=== PATIENT | male | born 1955 | race Caucasian/White ===

== ENCOUNTER 2024-01-16 09:07 | Inpatient (IN) | payer BC, OTHER ==
--- NOTE | 2024-01-16 09:47 | RAD REPORT ---
EXAM DESCRIPTION: CT - Head Brain Wo Cont - 01/16/2024 9:37 am CLINICAL HISTORY: SYNCOPE COMPARISON: No comparisons TECHNIQUE: All CT scans are performed using dose optimization technique as appropriate and may inclu de automated exposure control or mA/KV adjustment according to patient size. FINDINGS: No intracranial hemorrhage, hydrocephalus or extra-axial fluid collection.No areas of brai n edema or evidence of midline shift. Mucus retention cyst in the left maxillary sinus. The calvarium is intact. IMPRESSION: No acute intracranial abnormality.
[2024-01-16 10:05] LABS: Absolute Basophils 0.1 K/uL (0-0.5); Absolute Eosinophils 0.4 K/uL (0-0.5); Absolute Lymphocytes (CBC) 1.8 K/uL (0.7-4.9); Absolute Monocytes 0.6 K/uL (0.1-1.3); Absolute Neutrophil 7.1 K/uL (1.8-8.0); Basophils % 1.3 % (0-1.3); Eosinophils % 3.9 % (0-4.4); Hematocrit 49.2 % (39.6-49.0); Hemoglobin 16.4 g/dL (13.6-17.9); Lymphocytes % 18.3 % (15.3-44.8); MCH 27.7 pg (27.0-35.0); MCHC 33.4 g/dL (32.0-36.0); MCV 82.7 fL (80-100); Monocytes % 5.9 % (3.3-12.3); Neutrophils % 70.6 % (41.7-73.7); Platelets 858 thou/uL (152-406); RBC Red Blood Cell Count 5.94 M/uL (4.33-5.43); Red Cell Distribution Width 16.2 % (12.1-15.2)
[2024-01-16 10:06] LABS: PT Prothrombin Time 12.6 SECONDS (9.5-12.5); Protime INR 1.15
[2024-01-16 10:30] LABS: Albumin 3.3 g/dL (3.4-5.0); Albumin/Globulin Ratio 0.8 (1.1-1.8); Anion Gap 8.5 mEq/L (5.0-15.0); Bilirubin Direct 0.2 mg/dL (0-0.2); Bilirubin Indirect, Calculated 0.4 mg/dL (0.2-0.8); Bilirubin Total 0.6 mg/dL (0.2-1.0); Globulin 3.9 g/dL (2.3-3.5); Magnesium 2.1 mg/dL (1.6-2.4); Potassium 4.5 mEq/L (3.5-5.1); Protein, Total 7.2 g/dL (6.4-8.2)
[2024-01-16 10:32] LABS: Troponin High Sensitivity 183.2 pg/mL (<58.9)
--- NOTE | 2024-01-16 10:35 | RAD REPORT ---
EXAM DESCRIPTION: RAD - Chest Single View - 01/16/2024 10:26 am CLINICAL HISTORY: syncope COMPARISON: No comparisons FINDINGS: Lines: None. Lungs: No evidence of edema or pneumonia. Pleural: No significant pleural effusions or pneumothorax. Cardiac: The heart size is within normal limits. Mediastinum: Within normal limits. Bones: No acute fractures. Other: None IMPRESSION: No acute cardiopulmonary disease.
--- NOTE | 2024-01-16 10:40 | EDPHYS ---
Physician Documentation [facility] Name: Derek Avery Age: 68 yrs Sex: Male : 1955 Arrival Date: 01/16/2024 Time: 09:07 Bed 7 Private MD: ED Physician Angelique Hammond HPI: 01/15 09:27 This 68 yrs old Male presents to ER via Unassigned with complaints of Dizziness, Passed sp3 out twice. 09:27 68-year-old male with a history of hypertension, hyperlipidemia, smoking history sp3 presents to the ED with chief complaint syncope. Initial syncopal event was approximately 1 week ago where patient states his "legs got wobbly and he passed out and woke up on the ground". He had another episode yesterday where his found him laying on the ground with the car engine on outside of the home. EMS was activated but patient refused to come in to the ED due to him "feeling better". Today his made him come in so he presents with the above history. No syncopal event today. He denies any prodromal episode prior to the event other than his legs getting weak. He denies any chest pain, shortness of breath, headache, fever, URI symptoms, trauma, sick contacts, travel history, abdominal pain, vomiting, diarrhea, or any other signs or symptoms on ROS at this time. 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 Historical: - Allergies: 09:41 No Known Allergies; ss - Home Meds: 09:41 losartan 50 mg oral tablet 1 tab daily [Active]; atorvastatin 40 mg oral tablet 1 tab ss daily [Active]; clopidogrel 75 mg oral tablet 1 tab daily [Active]; aspirin 81 mg Oral capsule 1 cap daily [Active]; - PMHx: 09:41 high cholesterol; hypertension; ss - PSHx: 09:41 "stents in legs"; ss - Immunization history:: Client reports receiving the 2nd dose of the Covid vaccine. - Infectious Disease History:: Denies. - Social history:: Smoking status: Patient reports the use of cigarette tobacco products, smokes one pack cigarettes per day. Patient uses alcohol, admits to "couple of beers" a day. ROS: 09:30 Eyes: Negative for injury, pain, redness, and discharge, ENT: Negative for injury, sp3 pain, and discharge, Neck: Negative for injury, pain, and swelling, Cardiovascular: Negative for chest pain, palpitations, and edema, Respiratory: Negative for shortness of breath, cough, wheezing, and pleuritic chest pain, Abdomen/GI: Negative for abdominal pain, nausea, vomiting, diarrhea, and constipation, Back: Negative for injury and pain, MS/Extremity: Negative for injury and deformity, Skin: Negative for injury, rash, and discoloration, Psych: Negative for depression, anxiety, suicide ideation, homicidal ideation, and hallucinations, Allergy/Immunology: Negative for hives, rash, and allergies, Endocrine: Negative for neck swelling, polydipsia, polyuria, polyphagia, and marked weight changes, Hematologic/Lymphatic: Negative for swollen nodes, abnormal bleeding, and unusual bruising, 09:30 All other systems are negative, Exam: 09:30 Constitutional: This is a well developed, well nourished patient who is awake, alert, sp3 and in no acute distress. Head/Face: Normocephalic, atraumatic. Eyes: Pupils equal round and reactive to light, extra-ocular motions intact. Lids and lashes normal. Conjunctiva and sclera are non-icteric and not injected. Cornea within normal limits. Periorbital areas with no swelling, redness, or edema. ENT: Nares patent. No nasal discharge, no septal abnormalities noted. External auditory canals are clear. Oropharynx with no redness, swelling, or masses, exudates, or evidence of obstruction, uvula midline. Mucous membranes moist. Neck: Trachea midline, no thyromegaly or masses palpated, and no cervical lymphadenopathy. Supple, full range of motion without nuchal rigidity, or vertebral point tenderness. No Meningismus. Chest/axilla: Normal chest wall appearance and motion. Nontender with no deformity. No lesions are appreciated. Cardiovascular: Regular rate and rhythm with a normal S1 and S2. No gallops, murmurs, or rubs. Normal PMI, no JVD. No pulse deficits. Respiratory: Lungs have equal breath sounds bilaterally, clear to auscultation and percussion. No rales, rhonchi or wheezes noted. No increased work of breathing, no retractions or nasal flaring. Abdomen/GI: Soft, non-tender, with normal bowel sounds. No distension or tympany. No guarding or rebound. No evidence of tenderness throughout. Back: No spinal tenderness. No costovertebral tenderness. Full range of motion. Skin: Warm, dry with normal turgor. Normal color with no rashes, no lesions, and no evidence of cellulitis. MS/ Extremity: Pulses equal, no cyanosis. Neurovascular intact. Full, normal range of motion. Neuro: Awake and alert, GCS 15, oriented to person, place, time, and situation. Cranial nerves II-XII grossly intact. Motor strength 5/5 in all extremities. Sensory grossly intact. Cerebellar exam normal. Normal gait. Psych: Awake, alert, with orientation to person, place and time. Behavior, mood, and affect are within normal limits. 10:14 ECG was reviewed by the Attending Physician. EKG demonstrates normal sinus rhythm at 71 sp3 bpm with normal intervals, normal QRS, normal axis, normal ST/T segments without evidence of acute ischemia. Vital Signs: 09:13 BP 158 / 80; Pulse 70; Resp 16; Temp 98.5(TE); Pulse Ox 99% on R/A; Weight 74.84 kg; ss Height 5 ft. 8 in. ; Pain 0/10; 10:22 BP 139 / 79 Sitting; Pulse 67; Resp 14; Pulse Ox 99% ; sm8 10:22 BP 149 / 92 Supine; Pulse 64; Resp 12; Pulse Ox 98% ; sm8 10:22 BP 146 / 72 Standing; Pulse 75; Resp 16; Pulse Ox 96% ; sm8 11:30 BP 112 / 73; Pulse 65; Resp 20; Pulse Ox 97% on R/A; db 09:13 Body Mass Index 25.09 (74.84 kg, 172.72 cm) ss 09:13 Pain Scale: Adult ss MDM: 09:14 Patient medically screened. sp3 09:30 Data reviewed: vital signs, nurses notes, lab test result(s), EKG, radiologic studies. sp3 ED course: 68-year-old male with PMH above now here with syncope for 2 episodes over the last 1 week. No current symptoms. Patient denies any weakness or other stroke related symptoms. Differential diagnosis includes vasovagal syncope, dehydration, TIA/stroke spectrum, acute coronary syndrome, intracranial mass, among others. Clinically I am not highly suspicious for sepsis, shock, or any other critical process. Workup will include EKG, chest x-ray, CT scan of the head, laboratory values, UA, and general observation. Disposition pending workup and patient course.. 10:38 ED course: CT scan of the head and chest x-ray are normal. Laboratory values within [facility] normal limits other than troponin of 183 in the setting of normal creatinine. Sodium also 134. Given his symptoms, we will admit patient with cardiology consultation and serial markers and further evaluation as they deem necessary.. 11:19 ED course: Patient has been seen at the [facility] in the past but request to be sp3 admitted here for this diagnosis given the severity.. 06 09:24 Order name: Basic Metabolic Panel; Complete Time: 10:35 3 01/15 09:24 Order name: CBC with Diff; Complete Time: 10:35 3 01/15 09:24 Order name: LFT's; Complete Time: 10:35 [facility] 01/15 09:24 Order name: Magnesium; Complete Time: 10:35 3 01/15 09:24 Order name: NT PRO-BNP; Complete Time: 10:35 3 01/15 09:24 Order name: PT-INR; Complete Time: 10:35 3 01/15 09:24 Order name: Troponin HS; Complete Time: 10:35 3 01/15 09:30 Order name: CK; Complete Time: 10:35 sp3 01/15 09:30 Order name: [facility] 01/15 11:49 Order name: Basic Metabolic Panel [facility] 01/15 11:49 Order name: CBC with Automated Diff [facility] 01/15 11:49 Order name: Lipid Profile [facility] 01/15 11:49 Order name: Lipid Profile [facility] 01/15 11:49 Order name: Troponin High Sensitivity [facility] 01/15 11:49 Order name: Troponin High Sensitivity [facility] 01/15 11:49 Order name: Troponin High Sensitivity [facility] 01/15 11:49 Order name: Troponin High Sensitivity [facility] 01/15 09:24 Order name: XRAY Chest (1 view); Complete Time: 10:38 3 01/15 09:24 Order name: CT Head Brain wo Cont; Complete Time: 09:52 3 01/15 11:49 Order name: Echo with Doppler [facility] 01/15 11:52 Order name: Carotid Artery Bilateral [facility] 01/15 11:49 Order name: CONS Physician Consult [facility] 01/15 09:24 Order name: Cardiac monitoring; Complete Time: 10:00 sp3 01/15 09:24 Order name: EKG - Nurse/Tech; Complete Time: 10:00 sp3 01/15 09:24 Order name: IV Saline Lock; Complete Time: 10:00 sp3 01/15 09:24 Order name: Labs collected and sent; Complete Time: 10:00 sp3 01/15 09:24 Order name: O2 Per Protocol; Complete Time: 10:00 sp3 01/15 09:24 Order name: O2 Sat Monitoring; Complete Time: 10:00 sp3 01/15 09:32 Order name: Orthostatics; Complete Time: 10:24 sp3 Administered Medications: No medications were administered Disposition Summary: 01/16/24 10:39 Hospitalization Ordered Notes: Hospitalization Status: Inpatient Admission sp3 Provider: Sindy Leary sp3 Location: Telemetry/MedSurg (Inpatient) sp3 Condition: Stable sp3 Problem: new sp3 Symptoms: are unchanged sp3 Bed/Room Type: Standard sp3 Room Assignment: 212(01/16/24 11:59) Diagnosis - NSTEMI, SYNCOPE sp3 Forms: - Medication Reconciliation Form sp3 - SBAR form sp3 - Leadership Thank You Letter sp3 Signatures: Dispatcher [employer] Stacy Escalante RN RN ss Angelique Hammond MD MD sp3 Corrections: (The following items were deleted from the chart) 09:25 09:24 BASIC METABOLIC PANEL+C.LAB.BRZ ordered. EDCO EDMS : 09:24 CBC+H.LAB.BRZ ordered. EDMS EDMS : 09:24 HEPATIC FUNCTION+C.LAB.BRZ ordered. EDMS EDMS 09: 09:24 MAGNESIUM+C.LAB.BRZ ordered. EDMS EDMS : 09:24 PROBNP+C.LAB.BRZ ordered. EDCO EDMS : 09:25 PROTIME (+INR)+COAG.LAB.BRZ ordered. EDCO EDMS : 09:25 Troponin High Sensitivity+C.LAB.BRZ ordered. EDMS EDMS : 09:25 Chest Single View+RAD.RAD.BRZ ordered. EDMS EDMS 09:25 09:25 Head Brain Wo Cont+CT.RAD.BRZ ordered. EDMS EDMS 11:59 10:39 sp3 ss
--- NOTE | 2024-01-16 10:40 | ER ---
Nurse's Notes [facility] [place] Name: Derek Avery Age: 68 yrs Sex: Male : 1955 Arrival Date: 01/16/2024 Time: 09:07 Bed 7 Private MD: Diagnosis: NSTEMI, SYNCOPE Presentation: 01/15 09:13 Chief complaint: Patient states: syncopal episode 1 week ago and another episode ss yesterday. reports when she found him yesterday, he was blue and responsive. Pt reports he has not been feeling ill lately and is unsure as to why this is happening. Coronavirus screen: Client denies travel out of the [place] in the last 14 days. Ebola Screen: Patient denies exposure to infectious person. Patient denies travel to an Ebola-affected area in the 21 days before illness onset. Initial Sepsis Screen: Does the patient meet any 2 criteria? No. Patient's initial sepsis screen is negative. Does the patient have a suspected source of infection? No. Patient's initial sepsis screen is negative. Risk Assessment: Do you want to hurt yourself or someone else? Patient reports no desire to harm self or others. Onset of symptoms was January 09, 2024. 09:13 Method Of Arrival: Ambulatory ss 09:13 Acuity: AUGUST 3 ss Triage Assessment: 09:15 General: Appears in no apparent distress. comfortable, Behavior is calm, cooperative. ss Pain: Denies pain. Neuro: Level of Consciousness is awake, alert, obeys commands, Oriented to person, place, time, situation. Respiratory: Airway is patent Respiratory effort is even, unlabored, Respiratory pattern is regular, symmetrical. Derm: Skin is intact, is healthy with good turgor, Skin is dry, Skin is red. Historical: - Allergies: 09:41 No Known Allergies; ss - Home Meds: 09:41 losartan 50 mg oral tablet 1 tab daily [Active]; atorvastatin 40 mg oral tablet 1 tab ss daily [Active]; clopidogrel 75 mg oral tablet 1 tab daily [Active]; aspirin 81 mg Oral capsule 1 cap daily [Active]; - PMHx: 09:41 high cholesterol; hypertension; ss - PSHx: 09:41 "stents in legs"; ss - Immunization history:: Client reports receiving the 2nd dose of the Covid vaccine. - Infectious Disease History:: Denies. - Social history:: Smoking status: Patient reports the use of cigarette tobacco products, smokes one pack cigarettes per day. Patient uses alcohol, admits to "couple of beers" a day. Screenin:22 [facility] ED Fall Risk Assessment (Adult) History of falling in the last 3 months, db including since admission No falls in past 3 months (0 pts) Confusion or Disorientation No (0 pts) Intoxicated or Sedated No (0 pts) Impaired Gait No (0 pts) Mobility Assist Device Used No (0 pt) Altered Elimination No (0 pt) Score/Fall Risk Level 0 - 2 = Low Risk Oriented to surroundings, Maintained a safe environment. Abuse screen: Denies threats or abuse. Denies injuries from another. Nutritional screening: No deficits noted. Tuberculosis screening: No symptoms or risk factors identified. Assessment: 09:59 Reassessment: Patient appears in no apparent distress at this time. Patient and/or db family updated on plan of care and expected duration. Pain level reassessed. Patient is alert, oriented x 3, equal unlabored respirations, skin warm/dry/pink. syncopal episode yesterday. General: Appears in no apparent distress. comfortable, Behavior is calm, cooperative. Neuro: Level of Consciousness is awake, alert, obeys commands, Oriented to person, place, time, situation, Speech is normal, Facial symmetry appears normal. Respiratory: Airway is patent Respiratory effort is even, unlabored, Respiratory pattern is regular, symmetrical. 12:10 Reassessment: Patient appears in no apparent distress at this time. No changes from db previously documented assessment. Patient and/or family updated on plan of care and expected duration. Pain level reassessed. Patient is alert, oriented x 3, equal unlabored respirations, skin warm/dry/pink. PT PROVIDED SANDWICH PER DR. HAMMOND. 12:23 Reassessment: Patient appears in no apparent distress at this time. Patient and/or db family updated on plan of care and expected duration. Pain level reassessed. Patient is alert, oriented x 3, equal unlabored respirations, skin warm/dry/pink. 13:00 Reassessment: Patient appears in no apparent distress at this time. Patient and/or db family updated on plan of care and expected duration. Pain level reassessed. Patient is alert, oriented x 3, equal unlabored respirations, skin warm/dry/pink. Vital Signs: 09:13 BP 158 / 80; Pulse 70; Resp 16; Temp 98.5(TE); Pulse Ox 99% on R/A; Weight 74.84 kg; ss Height 5 ft. 8 in. ; Pain 0/10; 10:22 BP 139 / 79 Sitting; Pulse 67; Resp 14; Pulse Ox 99% ; sm8 10:22 BP 149 / 92 Supine; Pulse 64; Resp 12; Pulse Ox 98% ; sm8 10:22 BP 146 / 72 Standing; Pulse 75; Resp 16; Pulse Ox 96% ; sm8 11:30 BP 112 / 73; Pulse 65; Resp 20; Pulse Ox 97% on R/A; db 09:13 Body Mass Index 25.09 (74.84 kg, 172.72 cm) ss 09:13 Pain Scale: Adult ss ED Course: 09:11 Patient arrived in ED. ts1 09:11 Angelique Hammond MD is Attending Physician. sp3 09:20 Initial lab(s) drawn, by or, sent to lab. Inserted saline lock: 20 gauge in right db forearm, using aseptic technique. Blood collected. 09:39 CT Head Brain wo Cont In Process Unspecified. EDMS 09:41 Triage completed. ss 09:41 Arm band placed on right wrist. ss 09:45 Nette Mendoza, JOHN PAUL is Primary Nurse. db 09:59 EKG done, by ED staff. sm8 10:28 XRAY Chest (1 view) In Process Unspecified. EDMS 10:39 Sindy Leary MD is Hospitalizing Provider. sp3 12:22 Patient has correct armband on for positive identification. Bed in low position. Call db light in reach. Side rails up X 1. Provided Education on: ADMISSION. Pulse ox on. NIBP on. 12:23 No provider procedures requiring assistance completed. Patient admitted, IV remains in db place. Administered Medications: No medications were administered Medication: 12:22 VIS not applicable for this client. db Outcome: 10:39 Decision to Hospitalize by Provider. sp3 12:22 Admitted to ER Hold. Please see [facility] for further documentation. db 12:22 Condition: stable 12:22 Instructed on the need for admit, 13:01 Patient left the ED. db Signatures: Dispatcher [facility] Stacy Escalante, RN RN ss Angelique Hammond MD MD sp3 Nette Mendoza RN RN db Melonie Emerson PAS PAS ts1 Rahda Perez 8
--- NOTE | 2024-01-16 11:29 | P.HP ---
Certification for Inpatient Patient admitted to: Inpatient With expected LOS: >2 Midnights Patient will require the following post-hospital care: None Practitioner: I am a practitioner with admitting privileges, knowledge of patient current condition, hospital course, and medical plan of care. Services: Services provided to patient in accordance with Admission requirements found in Title 42 Section 412.3 of the Code of Federal Regulations <Farzana Robleskristal Hernandez - Last Filed: 01/16/24 12:50> Patient History Date of Service: 01/16/24 Primary Care Provider: VIV Reason for admission: Syncope, NSTEMI History of Present Illness: Mr. Avery is a 68-year-old gentleman with a past medical history of hyperte nsion, hyperlipidemia, peripheral artery disease, tobacco abuse. Last week he admits to a syncopal episode that he kept from his . Yesterday 01/15/2024, he had another syncopal episode with cyanosis and shallow respirations at his home and EMS was called. They evaluated the patient and attempted to transport him to the emergency department; however, the patient refused. As of this morning, he denies any symptoms but his insisted he come to the ED. On evaluation he is alert, oriented, and hemodynamically stable. His EKG shows sinus rhythm at 71 with hyperacute T wave isolated to lead V2. CT head negative, chest x-ray with "no acute cardiopulmonary disease" Labs: WBC 10, H/H 16.4/49.2 with platelets of 858, CMP within normal limits, Troponin 183.2. We will admit him for serial enzymes, carotid Doppler, and cardiology consultation. 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 -: Appendectomy Psychosocial/ Personal History: Lives at home with his - Social History Smoking Status: Current every day smoker Alcohol use: Yes CD- Drugs: No Caffeine use: Yes Place of Residence: Home <Farzana Robleskristal Hernandez - Last Filed: 01/16/24 12:50> Date of Service: 01/16/24 <Sindy Leary - Last Filed: 01/16/24 14:54> Allergies No Known Allergies Allergy (Verified 03/02/18 16:38) Home Medications: Aspirin 81 mg PO DAILY 01/16/24 Atorvastatin Calcium 40 mg PO DAILY 01/16/24 Clopidogrel Bisulfate [Plavix] 75 mg PO DAILY 01/16/24 Losartan Potassium 50 mg PO DAILY 01/16/24 Review of Systems 10-point ROS is otherwise unremarkable General: As per HPI Neurological: As per HPI <Tessie Robles David - Last Filed: 01/16/24 12:50> Physical Examination - Physical Exam General: Alert, In no apparent distress, Oriented x3 HEENT: Other (poor dentition) Neck: Supple Respiratory: Normal air movement Cardiovascular: No edema, Normal pulses, Regular rate/rhythm Capillary refill: <2 Seconds Gastrointestinal: Soft and benign Musculoskeletal: No clubbing, No swelling Integumentary: No rashes, Other (hyperemic) Neurological: Normal speech, Normal tone, Normal affect Lymphatics: No axilla or inguinal lymphadenopathy External genitalia: Deferred Rectal: Deferred - Studies Laboratory Data (last 24 hrs) 01/16/24 01/16/24 01/16/24 09:55 09:55 09:55 WBC 10.00 Hgb 16.4 Hct 49.2 H Plt Count 858 H PT 12.6 H INR 1.15 Sodium 134 L Potassium 4.5 BUN 12 Creatinine 0.86 Glucose 96 Magnesium 2.1 Total Bilirubin 0.6 AST 34 ALT 42 Alkaline Phosphatase 59 <Tessie Robles - Last Filed: 01/16/24 12:50> - Studies Laboratory Data (last 24 hrs) 01/16/24 01/16/24 01/16/24 09:55 09:55 09:55 WBC 10.00 Hgb 16.4 Hct 49.2 H Plt Count 858 H PT 12.6 H INR 1.15 Sodium 134 L Potassium 4.5 BUN 12 Creatinine 0.86 Glucose 96 Magnesium 2.1 Total Bilirubin 0.6 AST 34 ALT 42 Alkaline Phosphatase 59 <Sindy Leary - Last Filed: 01/16/24 14:54> Assessment and Plan - Plan Syncope CT head negative in ED Carotid doppler of bilat carotid arteries Neurochecks q shift NSTEMI tele trend trops heparin drip consult cardiology HTN Losartan 50mg po HLD atorvastatin 40mg po q hs eval lipids PAD hx of stenting to lower extremities Plavix 75mg po daily Tobacco abuse Recommend cessation VRE/GI prophylaxis Heparin/protonix Full Code - Advance Directives Does patient have a Living Will: Yes Does patient have a Durable POA for Healthcare: Yes <MargaretTessie David - Last Filed: 01/16/24 12:50> - Plan Pt seen and examined. I agree with the note by the [facility]. Pt is a 68 yo male with past medical history of Htn, tobacco abuse, and HLD who presents with dizziness and syncope. Pt passed out twice over the past 1 week. Pt reports that he felt weak in his legs and passed out about a week ago. Yesterday, his found him ground next to his car. She called EMS but pt refused to come to the ER. His convinced him to come to the ER for evaluation. 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 On admission, lab studies show wbc 10, Hgb 16.4, plt 858, k 4.5, Cr 0.86, troponin 183, BNP 645. At bedside, pt is in NAD. A/P: Syncope: Unknown etiology. Will f/u orthostatic vitals, Echo and carotid ultrasound. Likely due to dehydration. Continue IVF. NSTEMI: Troponin is 183. Will continue heparin drip, aspirin, BB and statin and consult cardiology Htn: Continue metoprolol Mild hyponatremia: Will give IVF and trend Na level. Hx of PAD: Continue plavix and atorvastatin. HLD: statin Tobacco abuse: Pt was advised to quit smoking Thrombocytosis: Will give aspirin and monitor platelet level. DVT ppx: SCD Code: full <Sindy Leary - Last Filed: 01/16/24 14:54>
[2024-01-16] MEDS ORDERED: MORPHINE 4 MG/ML SYR IV PRN (11:39)
[2024-01-16 13:27] VITALS: BMI 25.0
[2024-01-16] MEDS: HEPARIN/D5W 25,000 UNIT/500 ML BAG IV SCH (14:14)
[2024-01-16] MEDS: NA CHLORIDE 0.9% 1,000 ML IV SCH (15:05)
--- NOTE | 2024-01-16 15:17 | P.CNS ---
Date of Consult: 01/16/24 Primary Care Provider: VIV Chief Complaint: Syncope, NSTEMI History of Present Illness: Patient with PMH of PAD, HTN, tobacco abuse presented with Syncope, that happened twice over the last week, he can not recall specific symptoms with it but feel leg weak then pass out, no chest pain, no palpitations, no SOB. 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 moist/pink, EOMI, Sclerae nonicteric Neck: Supple, 2+ carotid pulse no bruit, No LAD, Without JVD or thyroid abnormality Respiratory: Clear to auscultation bilaterally, Normal air movement Cardiovascular: Regular rate/rhythm, Normal S1 S2 Gastrointestinal: Normal bowel sounds, No tenderness Musculoskeletal: No tenderness Integumentary: No rashes Neurological: Normal gait, Normal speech, Normal tone, Normal affect Lymphatics: No axilla or inguinal lymphadenopathy Laboratory Data (last 24 hrs) 01/16/24 01/16/24 01/16/24 09:55 09:55 09:55 WBC 10.00 Hgb 16.4 Hct 49.2 H Plt Count 858 H PT 12.6 H INR 1.15 Sodium 134 L Potassium 4.5 BUN 12 Creatinine 0.86 Glucose 96 Magnesium 2.1 Total Bilirubin 0.6 AST 34 ALT 42 Alkaline Phosphatase 59 - Problems (1) Syncope Current Visit: Yes Status: Acute Plan: unclear etiology so far, continue to monitor on telemetery get echo in am. (2) NSTEMI (non-ST elevated myocardial infarction) Current Visit: Yes Status: Acute Plan: continue to trend troponin x3 sets ASA 81 mg daily Lipitor 40 mg daily Heparin drip. (3) HTN (hypertension) Current Visit: Yes Status: Acute Plan: Continue Losartan and monitor. (4) PAD (peripheral artery disease) Current Visit: No Status: Acute Plan: Continue ASA and Plavix.
[2024-01-16 18:25] LABS: Absolute Basophils 0.1 K/uL (0-0.5); Absolute Eosinophils 0.5 K/uL (0-0.5); Absolute Lymphocytes (CBC) 1.9 K/uL (0.7-4.9); Absolute Monocytes 0.6 K/uL (0.1-1.3); Absolute Neutrophil 7.1 K/uL (1.8-8.0); Basophils % 1.2 % (0-1.3); Eosinophils % 5.2 % (0-4.4); Hematocrit 46.7 % (39.6-49.0); Hemoglobin 15.7 g/dL (13.6-17.9); Lymphocytes % 18.6 % (15.3-44.8); MCH 27.7 pg (27.0-35.0); MCHC 33.7 g/dL (32.0-36.0); MCV 82.3 fL (80-100); MPV 7.8 fL (7.6-11.3); Monocytes % 6.1 % (3.3-12.3); Neutrophils % 68.9 % (41.7-73.7); Nucleated Red Blood Cells % 0.2 % (0-0); Platelets 699 thou/uL (152-406); RBC Red Blood Cell Count 5.68 M/uL (4.33-5.43); Red Cell Distribution Width 16.1 % (12.1-15.2)
[2024-01-16 18:58] LABS: Troponin High Sensitivity 186.8 pg/mL (<58.9)
[2024-01-16 19:05] LABS: Blood Morphology Comment NOT SEEN (NOT SEEN); Differential Total Cells Count 100; Eosinophils 6 % (0-3); Lymphocytes 12 % (15-42); Monocytes 6 % (0-10); Platelet Estimate INCR; Segmented Neutrophils 75 % (40-80); White Blood Cell Scan DIFF (OK)
--- NOTE | 2024-01-16 19:43 | RAD REPORT ---
EXAM DESCRIPTION: - CP - 01/16/2024 7:33 pm CLINICAL HISTORY: syncope COMPARISON: No comparisons TECHNIQUE: Real-time sonographic evaluation of both carotid systems was performed. Doppler interroga tion was performed with waveform tracing bilaterally. FINDINGS: Normal high resistance waveforms are noted in both external carotid arteries. The common c arotid arteries and internal carotid arteries show normal low resistance waveforms. Mild soft plaque at the left carotid bulb. Peak systolic and end diastolic velocity values and the IC A/CCA ratios are in the non-hemodynamically significant range. Antegrade flow seen in both vertebral arteries. IMPRESSION: No evidence of a hemodynamically significant stenosis. Mild soft plaque at the left euceda tid bulb.
[2024-01-16] MEDS ORDERED: ATORVASTATIN 40 MG TAB PO SCH (21:00)
[2024-01-17] MEDS: CLOPIDOGREL 75 MG TABLET ONE (06:01)
[2024-01-17] MEDS: LOSARTAN POTASSIUM 50 MG TABLET ONE (06:01)
[2024-01-17] MEDS: ASPIRIN 81 MG CHEWABLE TABLET ONE (06:02)
[2024-01-17] MEDS: CLOPIDOGREL 75 MG TABLET PO SCH (06:06)
[2024-01-17] MEDS: ASPIRIN EC 81 MG TAB PO SCH (06:07)
[2024-01-17] MEDS: LOSARTAN POTASSIUM 50 MG TABLET PO SCH (06:07)
[2024-01-17] MEDS ORDERED: LIDOCAINE 1% 20 ML MDV ONE (06:59)
[2024-01-17] MEDS ORDERED: HEPA 1000U/500MLS 2,000 UNIT/1,000 ML BAG IV ONE (06:59)
[2024-01-17] MEDS ORDERED: FENTANYL CITR 100 MCG/2 ML ONE (07:47)
[2024-01-17] MEDS ORDERED: MIDAZOLAM HCL 2 MG/2 ML INJ ONE (07:47)
[2024-01-17] MEDS ORDERED: NITROGLYCERIN/D5W 50 MG/250 ML BTL IV ONE (07:53)
[2024-01-17] MEDS ORDERED: HEPARIN 5000 UNIT/ML 1 ML VIAL ONE (07:53)
[2024-01-17] MEDS ORDERED: HEPARIN 10,000 UNIT/10 ML VIAL IV ONE (07:53)
--- NOTE | 2024-01-17 08:32 | P.PN ---
Subjective Date of Service: 01/17/24 Primary Care Provider: [place] Chief Complaint: Syncope, NSTEMI Mr. Avery is a 68-year-old gentleman with a past medical history of hypertension, hyperlipidemia, peripheral artery disease, tobacco abuse. Last week he admits to a syncopal episode that he kept from his . Plan for left heart today, - Physical Exam General: Alert, In no apparent distress, Oriented x3 HEENT: Other (poor dentition) Neck: Supple Respiratory: Normal air movement Cardiovascular: No edema, Normal pulses, Regular rate/rhythm Capillary refill: <2 Seconds Gastrointestinal: Soft and benign Musculoskeletal: No clubbing, No swelling Integumentary: No rashes, Other (hyperemic) Neurological: Normal speech, Normal tone, Normal affect Lymphatics: No axilla or inguinal lymphadenopathy Review of Systems Per HPI Physical Examination - Vital Signs Temperature: 97.7 F Blood Pressure: 145/85 Pulse: 66 Respirations: 16 Pulse Ox (%): 98 - Studies Laboratory Data (last 24 hrs) 01/16/24 01/16/24 01/16/24 09:55 09:55 09:55 WBC 10.00 Hgb 16.4 Hct 49.2 H Plt Count 858 H PT 12.6 H INR 1.15 Sodium 134 L Potassium 4.5 BUN 12 Creatinine 0.86 Glucose 96 Magnesium 2.1 Total Bilirubin 0.6 AST 34 ALT 42 Alkaline Phosphatase 59 Assessment And Plan - Plan Assessment and Plan Syncope CT head negative in ED Carotid doppler of bilat carotid arteries Neurochecks q shift Left heart cath 01/16 NSTEMI tele trend trops heparin drip consult cardiology HTN Losartan 50mg po HLD atorvastatin 40mg po q hs eval lipids PAD hx of stenting to lower extremities Plavix 75mg po daily Tobacco abuse Recommend cessation VRE/GI prophylaxis Heparin/protonix Full Code Discharge Plan: Home Critical Care: No Time Spent Managing PTS Care (In Minutes): 35
--- NOTE | 2024-01-17 09:14 | P.PN ---
Subjective Date of Service: 01/17/24 Primary Care Provider: VIV Chief Complaint: Syncope, NSTEMI Subjective: No new changes, No C/O voiced, Tolerating diet, Ambulating, Improving Review of Systems 10-point ROS is otherwise unremarkable Physical Examination - Vital Signs Temperature: 97.7 F Blood Pressure: 145/85 Pulse: 66 Respirations: 16 Pulse Ox (%): 98 - Physical Exam General: Alert, In no apparent distress HEENT: Atraumatic, PERRLA, EOMI Neck: Supple, JVD not distended Respiratory: Clear to auscultation bilaterally, Normal air movement Cardiovascular: Regular rate/rhythm, Normal S1 S2 Gastrointestinal: Normal bowel sounds, No tenderness Musculoskeletal: No tenderness Integumentary: No rashes Neurological: Normal speech, Normal tone, Normal affect Lymphatics: No axilla or inguinal lymphadenopathy - Studies Laboratory Data (last 24 hrs) 01/16/24 01/16/24 01/16/24 09:55 09:55 09:55 WBC 10.00 Hgb 16.4 Hct 49.2 H Plt Count 858 H PT 12.6 H INR 1.15 Sodium 134 L Potassium 4.5 BUN 12 Creatinine 0.86 Glucose 96 Magnesium 2.1 Total Bilirubin 0.6 AST 34 ALT 42 Alkaline Phosphatase 59 Medications List Reviewed: Yes Assessment And Plan - Current Problems (Diagnosis) (1) Syncope Current Visit: Yes Status: Acute Plan: unclear etiology so far, continue to monitor on telemetery get echo. (2) NSTEMI (non-ST elevated myocardial infarction) Current Visit: Yes Status: Acute Plan: Patient had coronary angiogram done this morning that shows significant coronary artery disease and plan is for inpatient transfer for CABG ASA 81 mg daily Lipitor 40 mg daily Heparin drip, to be resumed 3 hours after TR band removal, no bolus. stop Plavix. (3) HTN (hypertension) Current Visit: Yes Status: Acute Plan: Continue Losartan and monitor. (4) PAD (peripheral artery disease) Current Visit: No Status: Acute Plan: Continue ASA and Plavix.
[2024-01-17 10:42] VITALS: O2SAT 98
--- NOTE | 2024-01-17 10:59 | P.DS ---
Admission Date: 01/16/24 Discharge Date: 01/17/24 Primary Care Provider: VIV Disposition: HOSPICE-MEDICAL FACILITY Discharge Condition: GOOD Reason for Admission: Syncope, NSTEMI Brief History of Present Illness: Mr. Avery is a 68-year-old gentleman with a past medical history of hypertension, hyperlipidemia, peripheral artery disease, tobacco abuse. Last week he admits to a syncopal episode that he kept from his . Yesterday 01/15/2024, he had another syncopal episode with cyanosis and shallow respirations at his home and EMS was called. They evaluated the patient and attempted to transport him to the emergency department; however, the patient refused. As of this morning, he denies any symptoms but his insisted he come to the ED. On evaluation he is alert, oriented, and hemodynamically stable. His EKG shows sinus rhythm at 71 with hyperacute T wave isolated to lead V2. CT head negative, chest x-ray with "no acute cardiopulmonary disease" Labs: WBC 10, H/H 16.4/49.2 with platelets of 858, CMP within normal limits, Troponin 183.2. We will admit him for serial enzymes, carotid Doppler, and cardiology consultation. - Physical Exam General: Alert, In no apparent distress, Oriented x3 HEENT: Other (poor dentition) Neck: Supple Respiratory: Normal air movement Cardiovascular: No edema, Normal pulses, Regular rate/rhythm Capillary refill: <2 Seconds Gastrointestinal: Soft and benign Musculoskeletal: No clubbing, No swelling Integumentary: No rashes, Other (hyperemic) Neurological: Normal speech, Normal tone, Normal affect Lymphatics: No axilla or inguinal lymphadenopathy External genitalia: Deferred Hospital Course: Mr. Avery is a 68-year-old gentleman with a past medical history of hypertension, hyperlipidemia, peripheral artery disease, tobacco abuse. Last week he admits to a syncopal episode that he kept from his . He was evaluated by cardiology was noted to have elevated troponins, placed on heparin drip, treated with aspirin and Plavix, patient is status post coronary angiogram done this morning that shows significant coronary artery disease and plan is for inpatient transfer for CABG. plan to transfer to [place] for CABG with cardiology to be accepting, Assessment Syncope, NSTEMI, elevated troponin treated with heparin drip, plan to transfer to [place] for CABG History of PAD History of hypertension resume home p.o. Continue home medicines as previously prescribed GOAL: Clear understanding of disease process INSTRUCTIONS: Physician Discharge Instructions: -Plan to transfer to [place] for CABG -Follow-up with PCP in 1 to 2 weeks-after hospital discharge -Please call nursing station at [phone] if any nursing or medication questions -Return to the emergency room if symptoms worsen Diet: ADA, low sodium Activity: Fall precautions Vital Signs/Physical Exam: Temp Pulse Resp BP Pulse Ox 97.7 F 65 16 147/73 H 98 01/17/24 09:14 01/17/24 10:42 01/17/24 10:42 01/17/24 10:42 01/17/24 09:14 Laboratory Data at Discharge: WBC 10.30 thou/uL (4.3-10.9) 01/16/24 18:16 Hgb 15.7 g/dL (13.6-17.9) 01/16/24 18:16 Hct 46.7 % (39.6-49.0) 01/16/24 18:16 Plt Count 699 thou/uL (152-406) H 01/16/24 18:16 PT 12.6 SECONDS (9.5-12.5) H 01/16/24 09:55 INR 1.15 01/16/24 09:55 APTT 37.1 SECONDS (24.3-36.9) H 01/17/24 04:08 Sodium 137 mEq/L (136-145) 01/16/24 18:16 Potassium 4.0 mEq/L (3.5-5.1) 01/16/24 18:16 BUN 12 mg/dL (7-18) 01/16/24 18:16 Creatinine 0.89 mg/dL (0.70-1.30) 01/16/24 18:16 Glucose 102 mg/dL (74-106) 01/16/24 18:16 Magnesium 2.1 mg/dL (1.6-2.4) 01/16/24 09:55 Total Bilirubin 0.6 mg/dL (0.2-1.0) 01/16/24 09:55 AST 34 U/L (15-37) 01/16/24 09:55 ALT 42 U/L (16-61) 01/16/24 09:55 Alkaline Phosphatase 59 U/L (45-117) 01/16/24 09:55 Triglycerides 87 mg/dL (<150) 01/16/24 18:16 Cholesterol 152 mg/dL (<200) 01/16/24 18:16 HDL Cholesterol 63 mg/dL (40-60) H 01/16/24 18:16 Cholesterol/HDL Ratio 2.41 01/16/24 18:16 Home Medications: Aspirin 81 mg PO DAILY 01/16/24 Atorvastatin Calcium 40 mg PO DAILY 01/16/24 Losartan Potassium 50 mg PO DAILY 01/16/24 Atorvastatin Calcium [Lipitor] 40 mg PO DAILY tab 01/17/24 Losartan Potassium [Cozaar*] 50 mg PO DAILY 01/17/24 Morphine [Morphine Sulfate*] 4 mg IV Q4H PRN syr 01/17/24 Pharmacy Consult 1 ea XX DAILYPRN PRN ea 01/17/24 Physician Discharge Instructions: Mr. Avery is a 68-year-old gentleman with a past medical history of hypertension, hyperlipidemia, peripheral artery disease, tobacco abuse. Last week he admits to a syncopal episode that he kept from his . He was ev aluated by cardiology was noted to have elevated troponins, placed on heparin drip, treated with aspirin and Plavix, patient is status post coronary angiogram done this morning that shows significant coronary artery disease and plan is for inpatient transfer for CABG. plan to transfer to [place] for CABG with cardiology to be accepting, Assessment Syncope NSTEMI, elevated troponin treated with heparin drip, plan to transfer to [place] for CABG History of PAD History of hypertension resume home p.o. Continue home medicines as previously prescribed GOAL: Clear understanding of disease process INSTRUCTIONS: Physician Discharge Instructions: -Plan to transfer to [place] for CABG -Follow-up with PCP in 1 to 2 weeks-after hospital discharge -Please call nursing station at [phone] if any nursing or medication questions -Return to the emergency room if symptoms worsen Diet: ADA, low sodium Activity: Fall precautions Diet: Low sodium Activity: Fall precautions Followup: NONE,NONE [Primary Care Provider] - Raheem Harvey MD [ACTIVE - CAN ADMIT] - Time spent managing pt's care (in minutes): 55
[2024-01-17] MEDS: ATORVASTATIN 40 MG TAB PO SCH (11:23)
--- NOTE | 2024-01-17 12:04 | EKG ---
Test Date: 2024-01-16 Test Time: 09:55:51 Psychologist Industrial Organizational: [employer] MEASUREMENT RESULTS: Intervals: Rate: 71 KS: 156 QRSD: 86 QT: 412 QTc: 447 [place]: P: 72 KS: 156 QRS: 20 T: 41 INTERPRETIVE STATEMENTS: Normal sinus rhythm Normal ECG No previous ECG available for comparison Electronically Signed On 01-17-24 12:03:10 CDT by Raheem Harvey
[2024-01-17] MEDS: HYDRALAZINE HCL 20 MG/ML VIAL IV ONE (16:22)
[2024-01-17 16:32] VITALS: BP 188/96; TEMP 97.9
[2024-01-17] MEDS ORDERED: LOSARTAN POTASSIUM 50 MG TABLET PO SCH (21:00)
--- NOTE | 2024-01-18 13:02 | OP ---
Date of Procedure: 01/17/2024 Surgeon: Raheem Harvey Procedures Performed: 1.Left heart catheterization. 2.Selective coronary angiogram. Indication For Procedure: Syncope and ST-elevation ND. Sedation Time: 20 minutes with 1 of Versed and 50 of fentanyl. Complications: None. Estimated Blood Loss: Less than 50 cc. Access: Right radial, closed by TR band. Description Of Procedure: After risks, and benefits, and alternatives were explained to patient, pat ient agreed to proceed with the procedure and signed informed consent. The patient was brought back to the laboratory tech, prepped and draped in sterile fashion. Time-out was performed. Sedation was admini stered. Ultrasound-guided right radial access was obtained. Next, a Bath 4.0 catheter was advanced to the LV cavity. LVEDP was obtained. Pullback did not show any gradient. The same catheter was u sed for selective angiograms of the left and right coronary artery systems. At the end of the proced ure, catheter was removed to the left subclavian artery. Left subclavian angiogram was done and the entire catheter was removed over a J-wire and entire sheath was removed and access was closed with a TR band. Hemostasis was achieved and the patient was moved back to recovery in stable condition. Findings: 1.Left main; distal 90% disease. 2.LAD, proximal diffuse 80% disease, then mild LI, then followed by two 70% lesions in the mid LAD, then mid to distal mild LI. 3.Diagonal 1 is a 2.5 mm vessel, proximal 60% disease. 4.Left circ dominant, got a mid 80% disease, then mild luminal irregularities. 5.OM1, 2.5 mm in size with the mild LI. 6.OM2, 2.5 mm in size, mild LI. 7.Left PDA/left PLB, mild luminal irregularities. 8.RCA, small, nondominant proximal 80% and mid 90% disease gives RV marginal only. 9.Left subclavian/GRIMALDO is patent. Assessment And Plan: Significant left main, LAD, and left circumflex disease. The plan is to consul t CT Surgery for evaluation for a bypass for inpatient transfer for surgery. JAIMIE/UYEN Voice ID: [id number] Report ID: [id number]
--- NOTE | 2024-01-18 13:03 | ECHO ---
HEIGHT: 5 ft 8 in WEIGHT: 165 lb 0 oz DATE OF STUDY: 01/17/[address]: Tessie Robles PLASTICS REPAIRER-BC 2-DIMENSIONAL: YES M.MODE: YES DOPPLER: YES COLOR FLOW: YES TDS: PORTABLE: YES DEFINITY: BUBBLE STUDY: DIAGNOSIS: SYNCOPE, ELEVATED TROPONIN CARDIAC HISTORY: CATHERIZATION: YES SURGERY: NO PROSTHETIC VALVE: NO PACEMAKER: NO MEASUREMENTS (cm) DIASTOLIC (NORMALS) SYSTOLIC (NORMALS) IVSd 1.2 (0.6-1.2) LA Diam 2.8 (1.9-4.0) LVEF 55-60% LVIDd 4.0 (3.5-5.7) LVIDs 2.6 (2.0-3.5) %FS 35% LVPWd 1.2 (0.6-1.2) Ao Diam 2.9 (2.0-3.7) 2 DIMENSIONAL ASSESSMENT: RIGHT ATRIUM: NORMAL LEFT ATRIUM: NORMAL RIGHT VENTRICLE: NORMAL LEFT VENTRICLE: NORMAL TRICUSPID VALVE: NORMAL MITRAL VALVE: TRACE MITRAL REGURGITATION PULMONIC VALVE: NOT VISUALIZED AORTIC VALVE: NORMAL PERICARDIAL EFFUSION: NONE AORTIC ROOT: NORMAL LEFT VENTRICULAR WALL MOTION: NORMAL DOPPLER/COLOR FLOW: NORMAL COMMENTS: 1. NORMAL LEFT VENTRICULAR SYSTOLIC FUNCTION, EJECTION FRACTION 55-60%, NORMAL WALL MOTION 2. NORMAL DIASTOLIC FUNCTION TECHNOLOGIST: JORDYN GREENE
== END 2024-01-17 18:35 | disposition hospice, inpatient (51) | DRG 281 ==
LOC: ER 09:07 → ERHOLD 11:39 → 2ND 12:04
PROVIDERS: ADMIT Hospitalist; ATTEND Hospitalist
PROC: 4A023N7 Measurement of Cardiac Sampling and Pressure, Left Heart, Percutaneous Approach (ICD-10-PCS; principal; 2024-01-17)
PROC: B2111ZZ Fluoroscopy of Multiple Coronary Arteries using Low Osmolar Contrast (ICD-10-PCS; 2024-01-17)
DX: I21.4 Non-ST elevation (NSTEMI) myocardial infarction (principal); E87.1 Hypo-osmolality and hyponatremia; I10 Essential (primary) hypertension; E86.0 Dehydration; E78.00 Pure hypercholesterolemia, unspecified; D75.839 Thrombocytosis, unspecified; I73.9 Peripheral vascular disease, unspecified; I25.10 Atherosclerotic heart disease of native coronary artery without angina pectoris; F17.210 Nicotine dependence, cigarettes, uncomplicated; Z51.5 Encounter for palliative care; Z79.02 Long term (current) use of antithrombotics/antiplatelets; Z79.82 Long term (current) use of aspirin; Z90.49 Acquired absence of other specified parts of digestive tract; Z79.899 Other long term (current) drug therapy; Z89.022 Acquired absence of left finger(s)
CPT/HCPCS: 36415; 70450; 71045; 76937; 80048; 80061; 80076; 82550; 83735; 83880; 84484; 85025; 85610; 85730; 93005; 93306; 93458; 93880; 99152; 99153; 99285; C1893; J0360; J1644; J2001; J2250; J3010; J7030; Q9966

== ENCOUNTER 2024-01-30 00:27 | Emergency (ER) | payer OTHER ==
[2024-01-30 02:09] LABS: Absolute Basophils 0.1 K/uL (0-0.5); Absolute Eosinophils 0.7 K/uL (0-0.5); Absolute Lymphocytes (CBC) 1.4 K/uL (0.7-4.9); Absolute Neutrophil 12.5 K/uL (1.8-8.0); Basophils % 0.9 % (0-1.3); Eosinophils % 4.1 % (0-4.4); Hematocrit 27.2 % (39.6-49.0); Hemoglobin 8.8 g/dL (13.6-17.9); MCH 26.7 pg (27.0-35.0); MCHC 32.2 g/dL (32.0-36.0); MCV 82.7 fL (80-100); MPV 8.4 fL (7.6-11.3); Monocytes % 6.6 % (3.3-12.3); Neutrophils % 79.4 % (41.7-73.7); Platelets 1189 thou/uL (152-406); RBC Red Blood Cell Count 3.29 M/uL (4.33-5.43); Red Cell Distribution Width 15.8 % (12.1-15.2)
[2024-01-30 02:27] LABS: Anion Gap 8.8 mEq/L (5.0-15.0); Potassium 3.8 mEq/L (3.5-5.1)
[2024-01-30 02:32] LABS: PT Prothrombin Time 26.5 SECONDS (9.4-12.5); PTT, Activated Partial Thromb 36.8 SECONDS (24.3-36.9); Protime INR 2.47
--- NOTE | 2024-01-30 04:08 | EDPHYS ---
Physician Documentation [facility] Name: Derek Avery Age: 68 yrs Sex: Male : 1955 Arrival Date: 01/30/2024 Time: 00:27 Bed 15 Private MD: ED Physician HPI: 01/29 01:01 This 68 yrs old Unknown Male presents to ER via Wheelchair with complaints of Leg ec2 Swelling, Leg Pain, 9 days post op open heart surgery. 01:01 Patient arrives today for evaluation of right lower extremity swelling. Patient ec2 recently had a CABG with right vein harvesting from the right lower extremity. Patient planing of swelling. Patient is on anticoagulation. Patient denies any difficulty breathing.. Historical: - Allergies: 00:53 No Known Allergies; lg3 - Home Meds: 00:53 Eliquis 5 mg oral tablet [Active]; aspirin 81 mg Oral capsule 1 cap daily [Active]; lg3 amiodarone 200 mg oral tablet [Active]; atorvastatin 40 mg Oral tablet 1 tab daily [Active]; ferrous sulfate 325 mg (65 mg iron) oral tablet [Active]; Metoprolol Tartrate 12.5 Oral 2 times per day [Active]; - PMHx: 00:53 High Cholesterol; Hypertension; lg3 - PSHx: 00:53 cardiac bypass (Hypertension); lg3 - Immunization history:: Adult Immunizations up to date. - Infectious Disease History:: Denies. - Social history:: Smoking status: Patient denies any tobacco usage or history of. Patient/guardian denies using alcohol, street drugs. ROS: 01:01 Constitutional: as per hpi ec2 Exam: 01:01 Constitutional: GEN: NAD Head: atraumatic Eyes: EOMI Ears: External ears are ec2 normal. CV: regular rate, right lower extremity with swelling, intact distal neurovascular status, 1+ DP in the right lower extremity. Pitting edema LUNGS: no respiratory distress ABD: non-distended SKIN: no evidence of rashes MSK: no evidence of trauma NEURO: moves all extremities equally Vital Signs: 00:51 BP 99 / 58; Pulse 85; Resp 17 S; Temp 97.7(O); Pulse Ox 97% on R/A; Weight 74.84 kg lg3 (R); Height 5 ft. 8 in. (R); 04:13 BP 107 / 61; Pulse 81; Resp 16 S; Temp 97.5(O); Pulse Ox 98% on R/A; lg3 00:51 Body Mass Index 25.09 (74.84 kg, 172.72 cm) lg3 MDM: 00:53 Patient medically screened. ec2 01:01 Data reviewed: vital signs. ED course: Patient arrives today for evaluation of right ec2 lower extremity swelling. Examination remarkable for cardiovascular findings as noted above. Will obtain ultrasound of the right lower extremity, obtain lab work as well. Differential diagnosis includes DVT, venous stasis, volume overload . 04:07 ED course: Ultrasound shows no evidence of DVT, superficial thrombophlebitis noted. ec2 Will have the patient follow-up for repeat ultrasonography. Patient discharged home. Return precautions given. . 01/29 00:58 Order name: CBC with Diff ec2 01/29 00:58 Order name: BMP; Complete Time: 02:49 ec2 01/29 00:58 Order name: PT-INR; Complete Time: 02:49 ec2 01/29 00:58 Order name: Ptt, Activated; Complete Time: 02:49 ec2 01/29 02:28 Order name: CBC Smear Scan EDMS 01/29 00:58 Order name: Extremity Venous Uni Ltd ec2 Administered Medications: No medications were administered Disposition Summary: 01/30/24 04:07 Discharge Ordered Notes: Location: Home ec2 Condition: Stable ec2 Diagnosis - Leg Swelling ec2 - Phlebitis and thrombophlebitis of superficial vessels of right lower extremity ec2 Followup: ec2 - With: Private Physician - When: - Reason: Re-evaluation by your physician Discharge Instructions: - Discharge Summary Sheet ec2 - Lymphedema ec2 - Thrombophlebitis ec2 Forms: - Medication Reconciliation Form ec2 - Antibiotic Education ec2 - Prescription Opioid Use ec2 - Patient Portal Instructions ec2 - Leadership Thank You Letter ec2 Signatures: Dispatcher [employer] Blank Rivera RN RN lg3 Kp Campos MD MD ec2 Corrections: (The following items were deleted from the chart) 00:57 00:53 PSHx: "stents in legs"; lg3 lg3 00:59 00:59 CBC+H.LAB.BRZ ordered. EDSC EDSC 00:59 00:59 BASIC METABOLIC PANEL+C.LAB.BRZ ordered. EDMS EDMS 00:59 00:59 PROTIME (+INR)+COAG.LAB.BRZ ordered. EDMS EDMS 00:59 00:59 PTT, ACTIVATED+COAG.LAB.BRZ ordered. EDMS EDMS
--- NOTE | 2024-01-30 04:08 | ER ---
Nurse's Notes [facility] Name: Derek Avery Age: 68 yrs Sex: Male : 1955 Arrival Date: 01/30/2024 Time: 00:27 Bed 15 Private MD: Diagnosis: Leg Swelling;Phlebitis and thrombophlebitis of superficial vessels of right lower extremity Presentation: 01/29 00:51 Chief complaint: Patient states: bypass surgery 9 days ago. they took veins out of my lg3 right leg and it started swelling yesterday. Coronavirus screen: Client denies travel out of the [place] in the last 14 days. At this time, the client does not indicate any symptoms associated with coronavirus-19. Ebola Screen: No symptoms or risks identified at this time. Initial Sepsis Screen: Does the patient meet any 2 criteria? No. Patient's initial sepsis screen is negative. Does the patient have a suspected source of infection? No. Patient's initial sepsis screen is negative. Risk Assessment: Do you want to hurt yourself or someone else? Patient reports no desire to harm self or others. Onset of symptoms was January 28, 2024. 00:51 Method Of Arrival: Wheelchair lg3 00:51 Acuity: AUGUST 3 lg3 Triage Assessment: 00:53 General: Appears in no apparent distress. comfortable, Behavior is calm, cooperative. lg3 Pain: Complains of pain in right leg. EENT: No deficits noted. No signs and/or symptoms were reported regarding the EENT system. Neuro: No deficits noted. [place] Agitation-Sedation Scale (RASS): 0 - Alert and Calm Level of Consciousness is awake, alert, obeys commands, Oriented to person, place, time, situation. Cardiovascular: No deficits noted. Denies chest pain, shortness of breath, Capillary refill < 3 seconds Clubbing of nail beds is absent JVD is absent Patient's skin is warm and dry. Respiratory: No deficits noted. Airway is patent Respiratory effort is even, unlabored, Respiratory pattern is regular, symmetrical. GI: No deficits noted. No signs and/or symptoms were reported involving the gastrointestinal system. : No deficits noted. No signs and/or symptoms were reported regarding the genitourinary system. Derm: No deficits noted. No signs and/or symptoms reported regarding the dermatologic system. Skin is intact, is healthy with good turgor, Skin is dry, Skin is normal, Skin temperature is warm. Musculoskeletal: Circulation, motion, and sensation intact. Range of motion: intact in all extremities, Swelling present in right leg. Historical: - Allergies: 00:53 No Known Allergies; lg3 - Home Meds: 00:53 Eliquis 5 mg oral tablet [Active]; aspirin 81 mg Oral capsule 1 cap daily [Active]; lg3 amiodarone 200 mg oral tablet [Active]; atorvastatin 40 mg Oral tablet 1 tab daily [Active]; ferrous sulfate 325 mg (65 mg iron) oral tablet [Active]; Metoprolol Tartrate 12.5 Oral 2 times per day [Active]; - PMHx: 00:53 High Cholesterol; Hypertension; lg3 - PSHx: 00:53 cardiac bypass (Hypertension); lg3 - Immunization history:: Adult Immunizations up to date. - Infectious Disease History:: Denies. - Social history:: Smoking status: Patient denies any tobacco usage or history of. Patient/guardian denies using alcohol, street drugs. Screenin:26 [facility] ED Fall Risk Assessment (Adult) History of falling in the last 3 months, lg3 including since admission No falls in past 3 months (0 pts) Confusion or Disorientation No (0 pts) Intoxicated or Sedated No (0 pts) Impaired Gait Yes (1 pt) Mobility Assist Device Used Yes (1 pt) Altered Elimination No (0 pt) Score/Fall Risk Level 0 - 2 = Low Risk Oriented to surroundings, Maintained a safe environment, Educated pt \\T\\ family on fall prevention, incl call for assistance when getting out of bed, Assessed \\T\\ reinforced patient's understanding of fall precautions. Abuse screen: Denies threats or abuse. Denies injuries from another. Nutritional screening: No deficits noted. Tuberculosis screening: No symptoms or risk factors identified. Assessment: 01:26 General: see triage assessment. lg3 02:30 Reassessment: Patient appears in no apparent distress at this time. No changes from lg3 previously documented assessment. Patient and/or family updated on plan of care and expected duration. Pain level reassessed. Patient is alert, oriented x 3, equal unlabored respirations, skin warm/dry/pink. 04:13 Reassessment: Patient appears in no apparent distress at this time. No changes from lg3 previously documented assessment. Patient and/or family updated on plan of care and expected duration. Pain level reassessed. Patient is alert, oriented x 3, equal unlabored respirations, skin warm/dry/pink. Vital Signs: 00:51 BP 99 / 58; Pulse 85; Resp 17 S; Temp 97.7(O); Pulse Ox 97% on R/A; Weight 74.84 kg lg3 (R); Height 5 ft. 8 in. (R); 04:13 BP 107 / 61; Pulse 81; Resp 16 S; Temp 97.5(O); Pulse Ox 98% on R/A; lg3 00:51 Body Mass Index 25.09 (74.84 kg, 172.72 cm) lg3 ED Course: 00:31 Patient arrived in ED. gm2 00:38 Kp Campos MD is Attending Physician. ec2 00:53 Triage completed. lg3 00:53 Arm band placed on right wrist. lg3 01:26 Blank Reich RN is Primary Nurse. lg3 01:26 Patient has correct armband on for positive identification. Placed in gown. Bed in low lg3 position. Call light in reach. Side rails up X 1. Client placed on continuous cardiac and pulse oximetry monitoring. NIBP monitoring applied. conveyor monitor on. Door closed. Noise minimized. Warm blanket given. Pillow given. Family accompanied patient. 01:53 Inserted saline lock: 20 gauge in right forearm, using aseptic technique. Blood oe collected. 02:52 Extremity Venous Uni Ltd US In Process Unspecified. EDMS 04:24 No provider procedures requiring assistance completed. IV discontinued, intact, lg3 bleeding controlled, No redness/swelling at site. Pressure dressing applied. Administered Medications: No medications were administered Medication: 04:24 VIS not applicable for this client. lg3 Outcome: 04:07 Discharge ordered by . ec2 04:24 Discharged to home via wheelchair, with significant other, lg3 04:24 Condition: stable 04:24 Discharge instructions given to patient, Instructed on discharge instructions, follow up and referral plans. Demonstrated understanding of instructions, follow-up care, 04:25 Patient left the ED. lg3 Signatures: Dispatcher [employer] EDMS Chris Austin Lacie, RN RN lg3 Kp Campos MD MD ec2 Marie Vásquez gm2 Corrections: (The following items were deleted from the chart) 00:57 00:53 PSHx: "stents in legs"; lg3 lg3
[2024-01-30 05:30] VITALS: BP 99/58; TEMP 97.7; O2SAT 97
[2024-01-30 06:57] LABS: White Blood Cell Scan OK (OK)
[2024-01-30 06:58] LABS: Blood Morphology Comment NOT SEEN (NOT SEEN); Platelet Estimate INCR
--- NOTE | 2024-01-31 21:39 | RAD REPORT ---
EXAM DESCRIPTION: US - Extremity Venous Uni Ltd - 01/30/2024 4:02 am CLINICAL HISTORY: 68 years, Male, SWELLING COMPARISON: None FINDINGS: Multiple grayscale images as well as duplex Doppler ultrasound with a color flow and spect ral waveform of right lower extremity were performed. Right common femoral vein, right superficial femoral vein, right popliteal vein were imaged. Spectr al waveform demonstrate normal compressibility and phasicity. No intraluminal defects were seen. Noted is the presence of superficial thrombus phlebitis of right greater saphenous proximal distal as pect near the level of the knee starting approximately 2.7 mm from the junction. IMPRESSION: No evidence of deep venous thrombosis. Superficial thrombophlebitis of right greater saphenous vein up to the level of the knee. Electronically signed by: Vinny Alfonso MD 01/30/2024 03:54 AM CDT Due to temporary technical issues with the PACS/Fluency reporting system, reports are being signed by the in house radiologists without review as a courtesy to insure prompt reporting. The interpreting radiologist is fully responsible for the content of the report.
== END 2024-01-30 04:25 | disposition home or self-care (01) ==
LOC: ER 00:27
DX: I80.01 Phlebitis and thrombophlebitis of superficial vessels of right lower extremity (principal); Z98.890 Other specified postprocedural states; Z95.1 Presence of aortocoronary bypass graft; Z79.01 Long term (current) use of anticoagulants; Z79.82 Long term (current) use of aspirin
CPT/HCPCS: 36415; 80048; 85025; 85610; 85730; 93971; 99284

== ENCOUNTER 2024-05-11 18:12 | Inpatient (IN) | payer OTHER, SELFPAY ==
[2024-05-11] MEDS ORDERED: cloNIDine HCL 0.1 MG TAB ONE (18:36)
--- NOTE | 2024-05-11 18:53 | RAD REPORT ---
EXAMINATION: ONE VIEW CHEST XR CLINICAL INDICATION: CHEST PAIN TECHNIQUE: Frontal chest projection is submitted. Examination is limited by patient positioning and t echnique. COMPARISON: 01/16/2024 FINDINGS: Moderate to large left pleural effusion is present. The right lungs are grossly clear. The heart is m ildly enlarged. Sternotomy wires. IMPRESSION: Moderate to large left pleural effusion.
[2024-05-11 19:06] LABS: PT Prothrombin Time 20.3 SECONDS (9.4-12.5); Protime INR 1.85
[2024-05-11 19:08] LABS: Absolute Basophils 0.1 K/uL (0-0.5); Absolute Eosinophils 0.2 K/uL (0-0.5); Absolute Lymphocytes (CBC) 1.2 K/uL (0.7-4.9); Absolute Monocytes 0.7 K/uL (0.1-1.3); Absolute Neutrophil 17.6 K/uL (1.8-8.0); Basophils % 0.6 % (0-1.3); Eosinophils % 0.9 % (0-4.4); Hematocrit 42.7 % (39.6-49.0); Hemoglobin 13.4 g/dL (13.6-17.9); Lymphocytes % 5.9 % (15.3-44.8); MCH 21.3 pg (27.0-35.0); MCHC 31.4 g/dL (32.0-36.0); MCV 67.9 fL (80-100); MPV 8.3 fL (7.6-11.3); Monocytes % 3.5 % (3.3-12.3); Neutrophils % 89.1 % (41.7-73.7); Platelets 1204 thou/uL (152-406); RBC Red Blood Cell Count 6.29 M/uL (4.33-5.43); Red Cell Distribution Width 20.4 % (12.1-15.2)
[2024-05-11 19:16] LABS: Albumin 3.5 g/dL (3.4-5.0); Albumin/Globulin Ratio 0.7 (1.1-1.8); Anion Gap 8.9 mEq/L (5.0-15.0); Bilirubin Direct 0.4 mg/dL (0-0.2); Bilirubin Indirect, Calculated 0.9 mg/dL (0.2-0.8); Bilirubin Total 1.3 mg/dL (0.2-1.0); Globulin 5.2 g/dL (2.3-3.5); Magnesium 2.1 mg/dL (1.6-2.4); Potassium 3.9 mEq/L (3.5-5.1); Protein, Total 8.7 g/dL (6.4-8.2); Troponin High Sensitivity 12.1 pg/mL (<58.9)
[2024-05-11 20:21] LABS: Anisocytosis 1+; Blood Morphology Comment NOTED (NOT SEEN); Platelet Estimate INCR; Poikilocytosis 1+; White Blood Cell Scan OK (OK)
[2024-05-11 21:22] LABS: Calcium Oxalate Crystals- Ur Few /HPF (None Seen); Sqamous Epithelial None Seen /HPF (None Seen); Urine Bacteria None Seen /HPF (<20); Urine Crystals Unidentified Few /HPF (None Seen); Urine Culture Reflex Order NOT NEEDED; Urine Mucus 1+ /HPF (None Seen); Urine RBC <5 /HPF (None Seen); Urine WBC <5 /HPF (<5); Urine WBC Clump Rare /HPF (None Seen)
--- NOTE | 2024-05-11 21:22 | RAD REPORT ---
EXAM: CT brain without contrast HISTORY: DIZZINESS COMPARISON: 01/16/2024 TECHNIQUE: Multiple contiguous axial images were obtained and a CT of the brain without contrast. Sag ittal and coronal reformats were performed. One or more of the following dose reduction techniques were used: Automated exposure control, adjust ment of the mA and/or kV according to patient size, and/or iterative reconstruction. FINDINGS: No evidence of hydrocephalus, intracranial hemorrhage, or extra-axial fluid collection. An area of diminished density is seen in the left occipital lobe suggesting subacute to chronic infa rct. This was not present on 01/16/2024 prior study. No evidence of midline shift or areas of brain edema. The calvarium is intact. The visualized paranasal sinuses and mastoid air cells are essentially clear . IMPRESSION: No evidence of acute intracranial abnormality. 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
--- NOTE | 2024-05-11 21:26 | RAD REPORT ---
EXAM: CT CHEST, ABDOMEN AND PELVIS WITH CONTRAST CLINICAL INDICATION: CHEST PAIN TECHNIQUE: CT chest, abdomen and pelvis was performed, following the administration of contrast, as p er department protocol. Axial, sagittal and coronal reconstructions were obtained. One or more of the following dose reduction techniques were used: Automated exposure control, adjustment of the mA a nd/or kV according to patient size, and/or iterative reconstruction. Unless otherwise specified, incidental findings do not require dedicated imaging follow-up. COMPARISON: No prior exam. FINDINGS: LUNGS: There is moderate atelectasis involving the left lung. The right lung base grossly clear. PLEURA: Moderate sized loculated left pleural effusion. MEDIASTINUM AND LYMPH NODES: No mediastinal mass or fluid collection. Normal size mediastinal, hilar, and axillary lymph nodes. OSSEOUS STRUCTURES AND CHEST WALL: Changes of prior CABG with sternotomy were noted. LIVER: Normal in size and contour. No focal lesion or biliary dilatation. PANCREAS: No mass, ductal dilation, or rohan-pancreatic fluid. SPLEEN: Normal size. No focal lesion. ADRENALS: Normal; no mass. KIDNEYS: Normal size and contour. No hydronephrosis. URINARY BLADDER: Normal contour. GASTROINTESTINAL TRACT: Moderate thickening of the colon is present greatest in the transverse and de scending colon compatible with moderate colitis. No pneumatosis. APPENDIX: Appendix not visualized, but no inflammatory changes in region of appendix. LYMPH NODES: No lymphadenopathy. MUSCULOSKELETAL: No acute or suspicious osseous abnormality. Moderately enlarged prostate gland. Mild to moderate atherosclerosis of the abdominal aorta. Occlusion, presumably chronic, is present of the left external iliac and left femoral artery. IMPRESSION: Moderately severe colitis pattern is seen, most significantly transverse and descending colon. Moderate loculated left pleural effusion with left lung atelectasis. Moderate prostatomegaly. 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
[2024-05-11 21:40] LABS: Specific Gravity 1.028 (1.005-1.030); Urine Bilirubin NEGATIVE (Negative); Urine Blood Negative (Negative); Urine Clarity Extremely Turbid (Clear); Urine Color Yellow (Yellow); Urine Glucose NEGATIVE (Negative); Urine Ketones TRACE (Negative); Urine Micro Reflex YN NO BILL NO MICROSCOPIC; Urine Nitrite NEGATIVE (Negative); Urine Protein TRACE (Negative); Urine Urobilinogen Normal (Normal)
--- NOTE | 2024-05-11 22:09 | ER ---
Nurse's Notes [facility] Name: Derek Avery Age: 68 yrs Sex: Male : 1955 Arrival Date: 05/11/2024 Time: 18:12 Bed 18 Private MD: Diagnosis: Infectious gastroenteritis and colitis, unspecified;Essential (primary) hypertension Presentation: 05/11 18:18 Chief complaint: Patient states: Elevated BP 220/120. Working outside all day. + N/V. ll1 Coronavirus screen: Client denies travel out of the [place] in the last 14 days. At this time, the client does not indicate any symptoms associated with coronavirus-19. Ebola Screen: Patient denies travel to an Ebola-affected area in the 21 days before illness onset. Initial Sepsis Screen: Does the patient meet any 2 criteria? No. Patient's initial sepsis screen is negative. Does the patient have a suspected source of infection? No. Patient's initial sepsis screen is negative. Risk Assessment: Do you want to hurt yourself or someone else? Patient reports no desire to harm self or others. Onset of symptoms was May 11, 2024. 18:18 Method Of Arrival: Ambulatory ll1 18:18 Acuity: AUGUST 2 ll1 Triage Assessment: 18:21 General: Appears distressed, uncomfortable, Behavior is calm, cooperative, appropriate ll1 for age. Pain: Complains of pain in abdomen Quality of pain is described as aching. Neuro: Reports headache weakness. GI: Reports nausea, vomiting. Historical: - Allergies: 18:18 No Known Allergies; ll1 - PMHx: 18:18 High Cholesterol; Hypertension; ll1 - PSHx: 18:18 cardiac bypass; ll1 18:21 Coronary artery bypass graft; ll1 - Immunization history:: Adult Immunizations up to date. - Infectious Disease History:: Denies. - Social history:: Smoking status: Patient reports the use of cigarette tobacco products, smokes one pack cigarettes per day. Screenin:51 [facility] ED Fall Risk Assessment (Adult) History of falling in the last 3 months, kc6 including since admission No falls in past 3 months (0 pts) Confusion or Disorientation No (0 pts) Intoxicated or Sedated No (0 pts) Impaired Gait No (0 pts) Mobility Assist Device Used No (0 pt) Altered Elimination No (0 pt) Score/Fall Risk Level 0 - 2 = Low Risk Oriented to surroundings. Abuse screen: Denies threats or abuse. Denies injuries from another. Nutritional screening: No deficits noted. Tuberculosis screening: No symptoms or risk factors identified. Assessment: 18:45 General: Appears in no apparent distress. uncomfortable, unkempt, well developed, kc6 Behavior is calm, cooperative, appropriate for age. Pain: Denies pain. Neuro: Level of Consciousness is awake, alert, obeys commands, Oriented to person, place, time, situation, Appropriate for age Reports blurred vision. Cardiovascular: Denies chest pain, shortness of breath, Capillary refill < 3 seconds Rhythm is sinus rhythm. Respiratory: Airway is patent Trachea midline Respiratory effort is even, unlabored, Respiratory pattern is regular, symmetrical. GI: Abdomen is flat, non-distended, Reports nausea, vomiting, Patient currently denies abdominal pain, diarrhea. : No signs and/or symptoms were reported regarding the genitourinary system. EENT: No signs and/or symptoms were reported regarding the EENT system. Derm: No signs and/or symptoms reported regarding the dermatologic system. Skin is healthy with good turgor, Skin is dry, Skin is normal, Skin temperature is warm. Musculoskeletal: No signs and/or symptoms reported regarding the musculoskeletal system. Circulation, motion, and sensation intact. Capillary refill < 3 seconds, Range of motion: intact in all extremities. 19:39 Reassessment: No changes from previously documented assessment. Patient and/or family dd2 updated on plan of care and expected duration. Pain level reassessed. Patient is alert, oriented x 3, equal unlabored respirations, skin warm/dry/pink. Pt AAOx4, Respirations even and unlabored. Denies pain, c/o "feeling tired". Pt resting quietly in bed, family at beside. Vital Signs: 18:18 BP 202 / 90; Pulse 74; Resp 18; Temp 97.4; Pulse Ox 99% ; Weight 65.77 kg; Height 5 ft. ll1 7 in. ; Pain 1/10; 19:06 BP 202 / 97; Pulse 78; Resp 18 S; Pulse Ox 97% on R/A; kc6 19:38 BP 195 / 96; Pulse 77; Resp 15; Pulse Ox 94% ; dd2 21:25 BP 192 / 95; Pulse 76; Resp 16; Pulse Ox 95% ; dd2 22:02 BP 184 / 99; Pulse 75; Resp 15; Temp 98.6; Pulse Ox 95% ; dd2 23:37 BP 149 / 75; Pulse 77; Resp 15; Pulse Ox 97% ; dd2 18:18 Body Mass Index 22.71 (65.77 kg, 170.18 cm) ll1 18:18 Pain Scale: Adult ll1 ED Course: 18:14 Patient arrived in ED. mg5 18:15 Veronika Srivastava PA-C is PHCP. sb4 18:15 Yoel Madrigal DO is Attending Physician. sb4 18:18 Arm band placed on. ll1 18:20 Triage completed. ll1 18:37 Sandy Jones, JOHN PAUL is Primary Nurse. kc6 18:44 XRAY Chest (1 view) In Process Unspecified. EDMS 18:51 Patient has correct armband on for positive identification. Bed in low position. Call kc6 light in reach. Side rails up X 1. Adult w/ patient. rail grinder on. Pulse ox on. NIBP on. Door closed. Noise minimized. Lights dimmed. Warm blanket given. Pillow given. 18:51 Inserted saline lock: 20 gauge in right forearm, using aseptic technique. Blood kc6 collected. Flushed with 10 mL NS. Patient maintains SpO2 saturation greater than 95% on room air. 19:07 Report given to Brittany Cardenas RN. kc6 21:09 [facility] Sent. dd2 21:16 CT Chest, Abdomen, Pelvis - W/Contrast In Process Unspecified. EDMS 21:17 CT Head Brain wo Cont In Process Unspecified. EDMS 21:25 [facility] Sent. dd2 21:58 Initial lab(s) drawn, by me, sent to lab. First set of blood cultures drawn by me. dd2 22:01 Lactate w/ 2H reflex if indic. Sent. dd2 22:02 Blood Culture Adult (2) Sent. dd2 22:08 Michael Fagan MD is Hospitalizing Provider. sb4 23:36 Provided Education on: ADMISSION. dd2 23:36 No provider procedures requiring assistance completed. dd2 05/12 11:26 [id number] CM met with at the bedside in the ED exam room. Patient identified by ane name and . Demographic sheet confirmed. Patient states he lives with his Sirena in a single story home. He reports that prior to admission, he performs ADLs independently, and without assistive devices. No DME, no HH, no home oxygen, or other medical services at this time. He has [facility] benefits and utilizes PCP services through the [facility]. Patient prefers to return home upon discharge and states Sirena will transport him home. CM team will continue to follow and coordinate care during this hospital stay. 12:33 Patient admitted, IV remains in place. me1 Administered Medications: 05/11 18:50 Drug: cloNIDine PO 0.1 mg PO once Route: PO; kc6 19:08 Follow up: Response: No adverse reaction kc6 22:27 Drug: Piperacillin-Tazobactam IVPB 3.375 grams IVPB once over 60 mins; (mix in NS 100 dd2 mL) Route: IVPB; Infused Over: 60 mins; Site: right antecubital; 22:42 Follow up: Response: No adverse reaction dd2 23:27 Follow up: Response: No adverse reaction; IV Status: Completed infusion; IV Intake: dd2 110ml Medication: 23:36 VIS not applicable for this client. dd2 Intake: 23:27 IV: 110ml; Total: 110ml. dd2 Outcome: 22:08 Decision to Hospitalize by Provider. sb4 05/12 12:33 Patient left the ED. ph 12:33 Admitted to Med/surg accompanied by tech, via wheelchair, room 224, with chart, Report me1 called to faxed by JOHN PAUL JHA. 12:33 Condition: stable 12:33 Instructed on the need for admit, Signatures: Dispatcher [employer] Annia Serrano RN RN ph Jhoana Diamond RN RN ll1 Sandy Jones RN RN [email or web address] Veronika Srivastava, PA-C PA-C sb4 Mireya Santos RN RN me1 Gracie Sylvester mg5 Irish Mendes RN RN ane DAVIS, DIANA, RN RN dd2 Corrections: (The following items were deleted from the chart) 05/11 18:22 18:18 Pulse 74bpm; Resp 18bpm; Pulse Ox 99%; 65.77 kg; Height 5 ft. 7 in.; BMI: 22.7; ll1 Pain 1/10, Adult; ll1
--- NOTE | 2024-05-11 22:09 | EDPHYS ---
Physician Documentation [facility] Name: Derek Avery Age: 68 yrs Sex: Male : 1955 Arrival Date: 05/11/2024 Time: 18:12 Bed 18 Private MD: ED Physician Yoel Madrigal HPI: 05/11 18:35 This 68 yrs old Male presents to ER via Ambulatory with complaints of Blurred Vision, sb4 High Blood Pressure. 18:35 Patient presents today with his with concerns of elevated blood pressure. He sb4 states that he has been working outside in the heat all day today. He came inside complaining of some blurry vision and a headache so his checked his blood pressure noted it to be 220/120. He reports compliance with his blood pressure medications. He denies any current chest pain or shortness of breath. States that he has been working hard lately as they have been in the process of moving. Historical: - Allergies: 18:18 No Known Allergies; ll1 - PMHx: 18:18 High Cholesterol; Hypertension; ll1 - PSHx: 18:18 cardiac bypass; ll1 18:21 Coronary artery bypass graft; ll1 - Immunization history:: Adult Immunizations up to date. - Infectious Disease History:: Denies. - Social history:: Smoking status: Patient reports the use of cigarette tobacco products, smokes one pack cigarettes per day. ROS: 18:35 Constitutional: Negative for fever, chills, and weight loss, sb4 18:35 Neuro: Positive for dizziness, headache, 18:35 All other systems are negative, Exam: 18:36 Eyes: Extra-ocular motions intact. Periorbital areas with no swelling, redness, or sb4 edema. ENT: Mucous membranes moist. Cardiovascular: Regular rate and rhythm with a normal S1 and S2. Respiratory: Lungs have equal breath sounds bilaterally, clear to auscultation and percussion. No rales, rhonchi or wheezes noted. No increased work of breathing, no retractions or nasal flaring. Abdomen/GI: Soft, non-tender, no distension. Skin: Warm, dry with normal turgor. Normal color with no rashes, no lesions, and no evidence of cellulitis. 18:36 Constitutional: The patient appears in no acute distress, alert, awake, 18:36 Head/face: 18:36 Skin: Appearance: flushing, noted on the face, Vital Signs: 18:18 BP 202 / 90; Pulse 74; Resp 18; Temp 97.4; Pulse Ox 99% ; Weight 65.77 kg; Height 5 ft. ll1 7 in. ; Pain 1/10; 19:06 BP 202 / 97; Pulse 78; Resp 18 S; Pulse Ox 97% on R/A; kc6 19:38 BP 195 / 96; Pulse 77; Resp 15; Pulse Ox 94% ; dd2 21:25 BP 192 / 95; Pulse 76; Resp 16; Pulse Ox 95% ; dd2 22:02 BP 184 / 99; Pulse 75; Resp 15; Temp 98.6; Pulse Ox 95% ; dd2 23:37 BP 149 / 75; Pulse 77; Resp 15; Pulse Ox 97% ; dd2 18:18 Body Mass Index 22.71 (65.77 kg, 170.18 cm) ll1 18:18 Pain Scale: Adult ll1 MDM: 18:17 Patient medically screened. sb4 22:08 Data reviewed: vital signs, nurses notes, lab test result(s), EKG, radiologic studies, sb4 and as a result, I will admit patient. Care significantly affected by the following chronic conditions: Hypertension. Counseling: I had a detailed discussion with the patient and/or guardian regarding the historical points, exam findings, and any diagnostic results supporting the discharge/admit diagnosis, the presence of at least one elevated blood pressure reading (>120/80) during this emergency department visit, lab results, radiology results, the need for further work-up and treatment in the hospital. 05/11 18:25 Order name: Basic Metabolic Panel; Complete Time: 19:24 sb4 05/11 18:25 Order name: CBC with Diff; Complete Time: 20:22 sb4 05/11 18:25 Order name: LFT's; Complete Time: 19:24 sb4 05/11 18:25 Order name: Magnesium; Complete Time: 19:24 sb4 05/11 18:25 Order name: NT PRO-BNP; Complete Time: 19:24 sb4 05/11 18:25 Order name: PT-INR; Complete Time: 19:06 sb4 05/11 18:25 Order name: Troponin HS; Complete Time: 19:24 sb4 05/11 18:55 Order name: Creatine Phosphokinase; Complete Time: 19:24 EDMS 05/11 19:25 Order name: UAM; Complete Time: 21:42 sb4 05/11 20:21 Order name: CBC Smear Scan; Complete Time: 20:22 EDMS 05/11 21:36 Order name: Blood Culture Adult (2) sb4 05/11 21:36 Order name: Lactate w/ 2H reflex if indic.; Complete Time: 22:27 sb4 05/12 01:03 Order name: Urinalysis w/ reflexes EDMS 05/12 01:03 Order name: CBC with Automated Diff EDMS 05/12 01:03 Order name: CBC with Automated Diff EDMS 05/12 01:03 Order name: Comprehensive Metabolic Panel EDMS 05/12 01:03 Order name: Comprehensive Metabolic Panel EDMS 05/12 09:46 Order name: CBC with Automated Diff EDMS 05/12 09:56 Order name: Basic Metabolic Panel EDMS 05/12 10:52 Order name: Manual Differential EDMS 05/11 18:25 Order name: XRAY Chest (1 view); Complete Time: 18:55 sb4 05/11 20:17 Order name: CT Head Brain wo Cont; Complete Time: 21:23 sb4 05/11 20:17 Order name: CT Chest, Abdomen, Pelvis - W/Contrast; Complete Time: 21:27 sb4 05/11 18:25 Order name: EKG; Complete Time: 18:26 sb4 05/12 01:03 Order name: CONS Physician Consult EDMS 05/11 18:25 Order name: Cardiac monitoring; Complete Time: 18:43 sb4 05/11 18:25 Order name: EKG - Nurse/Tech; Complete Time: 18:37 sb4 05/11 18:25 Order name: IV Saline Lock; Complete Time: 18:50 sb4 05/11 18:25 Order name: Labs collected and sent; Complete Time: 18:50 sb4 05/11 18:25 Order name: O2 Per Protocol; Complete Time: 18:37 sb4 05/11 18:25 Order name: O2 Sat Monitoring; Complete Time: 18:37 sb4 EC:43 Rate is 76 beats/min. Rhythm is regular, Normal Sinus Rhythm. WI interval is normal at sb4 176 msec. QRS interval is normal at 102 msec. QT interval is normal at 412 msec. No Q waves. T waves are Normal. No ST changes noted. Clinical impression: No evidence of ischemia. Interpreted by me. Reviewed by me. Administered Medications: 18:50 Drug: cloNIDine PO 0.1 mg PO once Route: PO; kc6 19:08 Follow up: Response: No adverse reaction kc6 22:27 Drug: Piperacillin-Tazobactam IVPB 3.375 grams IVPB once over 60 mins; (mix in NS 100 dd2 mL) Route: IVPB; Infused Over: 60 mins; Site: right antecubital; 22:42 Follow up: Response: No adverse reaction dd2 23:27 Follow up: Response: No adverse reaction; IV Status: Completed infusion; IV Intake: dd2 110ml Disposition: 18:38 I was immediately available on-site in the Emergency Department for consultation in the ms3 care of the patient. Disposition Summary: 05/11/24 22:08 Hospitalization Ordered Notes: Hospitalization Status: Inpatient Admission sb4 Provider: Michael Fagan sb4 Condition: Fair sb4 Problem: new sb4 Symptoms: are unchanged sb4 Bed/Room Type: Standard sb4 Location: Telemetry/MedSurg (Inpatient)(05/12/24 11:42) mb4 Room Assignment: 224(05/12/24 11:42) [facility] Diagnosis - Infectious gastroenteritis and colitis, unspecified sb4 - Essential (primary) hypertension sb4 Forms: - Medication Reconciliation Form sb4 - SBAR form sb4 - Leadership Thank You Letter sb4 Signatures: Dispatcher [employer] EDVA Renea Esqueda mb4 Jhoana Diamond RN RN ll1 Yoel Madrigal DO DO ms3 Rebeka Arnold RN RN vc1 Sandy Jones RN RN kc6 Veronika Srivastava PA-C PA-C sb4 IDA DOHERTY RN RN dd2 Corrections: (The following items were deleted from the chart) 18:55 18:32 CREATINE PHOSPHOKINASE+C.LAB.BRZ ordered. EDVA EDMS 19:25 19:25 Urinalysis W/Microscopic+U.LAB.BRZ ordered. EDVA EDMS 22:27 22:08 Telemetry/MedSurg (Inpatient) sb4 vc1 22:27 22:08 sb4 vc1 1005/11 22:27 [facility] ER HOLD vc1 mb4 05/12 22:27 ERHOLD- vc1 mb4
[2024-05-11] MEDS ORDERED: PIPERACIL/TAZO 3.375 GM VIAL IV ONE (22:14)
[2024-05-11] MEDS ORDERED: NA CHLORIDE 0.9% 100 ML ONE (22:14)
[2024-05-12] MEDS ORDERED: ACETAMINOPHEN 325 MG TABLET PO PRN (00:56)
[2024-05-12] MEDS ORDERED: ALBUTEROL 2.5 MG/3 ML NEB SOL NEB PRN (00:56)
[2024-05-12] MEDS ORDERED: IPRATROPIUM BROM 0.5MG/2.5ML NEB PRN (00:56)
[2024-05-12] MEDS ORDERED: ONDANSETRON 4 MG/2 ML VIAL IV PRN (00:56)
[2024-05-12] MEDS: NA CHLORIDE 0.9% 1,000 ML IV SCH (01:00)
[2024-05-12] MEDS ORDERED: MORPHINE 2 MG/ML SYR IV PRN (01:01)
[2024-05-12] MEDS: METRONIDAZOLE 500mg IVPB 500 MG/100 ML BAG IV SCH (01:02)
[2024-05-12] MEDS: CEFTRIAXONE 1,000 MG in NA CHLORIDE 0.9% 50 ML IVPB SCH (01:02)
[2024-05-12] MEDS ORDERED: CEFTRIAXONE 1000 MG/VIAL ONE ×2 (02:32→09:16)
[2024-05-12] MEDS ORDERED: NA CHLORIDE 0.9% 1,000 ML ONE ×2 (02:33→09:17)
[2024-05-12] MEDS ORDERED: METRONIDAZOLE 500mg IVPB 500 MG/100 ML BAG IV ONE ×2 (02:33→09:16)
[2024-05-12] MEDS ORDERED: NA CHLORIDE 0.9% 50 ML ONE ×2 (02:33→09:16)
--- NOTE | 2024-05-12 02:36 | P.HP ---
Certification for Inpatient Patient admitted to: Inpatient With expected LOS: >2 Midnights Practitioner: I am a practitioner with admitting privileges, knowledge of patient current condition, hospital course, and medical plan of care. Services: Services provided to patient in accordance with Admission requirements found in Title 42 Section 412.3 of the Code of Federal Regulations Patient History Date of Service: 05/12/24 Reason for admission: Elevated BP History of Present Illness: 68 yrs old Male with past medical history of hypertension, hyperlipidemia, CAD status post CABG was brought to ER with complaints of Blurred Vision and high blood pressure. Patient presents today with his with concerns of elevated blood pressure mostly. He states that he has been working outside in the heat all day today. He came inside complaining of some blurry vision and a headache so his checked his blood pressure noted it to be 220/120. He reports compliance with his blood pressure medications. He denies any current chest pain or shortness of breath. States that he has been working hard lately as they have been in the process of moving. Denies any shortness of breath. No abdominal pain. Denies any nausea vomiting or diarrhea. Patient was assessed in the ER and had a workup which showed pleural effusion and colitis and signs of peripheral artery disease and was admitted for further management Allergies No Known Allergies Allergy (Verified 03/02/18 16:38) Home medications list reviewed: Yes Home Medications: Aspirin 81 mg PO DAILY 01/16/24 Atorvastatin Calcium 40 mg PO DAILY 01/16/24 Losartan Potassium 50 mg PO DAILY 01/16/24 Atorvastatin Calcium [Lipitor] 40 mg PO DAILY tab 01/17/24 Losartan Potassium [Cozaar*] 50 mg PO DAILY 01/17/24 Morphine [Morphine Sulfate*] 4 mg IV Q4H PRN syr 01/17/24 Pharmacy Consult 1 ea XX DAILYPRN PRN ea 01/17/24 - Past Medical/Surgical History Diabetic: No Past Medical History: Reviewed- Non-Contributory -: CAD -: PAD -: HTN Past Surgical History: Reviewed- Non-Contributory -: BLE stents 2013 -: 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 -: Appendectomy Psychosocial/ Personal History: Lives at home with his - Social History Smoking Status: Former smoker Alcohol use: Yes CD- Drugs: No Caffeine use: Yes Review of Systems 10-point ROS is otherwise unremarkable Physical Examination - Vital Signs Temperature: 98.3 F Blood Pressure: 152/86 Pulse: 74 Respirations: 18 Pulse Ox (%): 94 - Physical Exam General: Alert, In no apparent distress, Oriented x3 HEENT: Atraumatic, Normocephalic Neck: Supple Respiratory: Clear to auscultation bilaterally, Normal air movement Cardiovascular: No edema, Regular rate/rhythm, Normal S1 S2 Capillary refill: <2 Seconds Gastrointestinal: Soft and benign, W/out hepatosplenomegaly, No tenderness Musculoskeletal: No clubbing, No swelling Integumentary: No rashes Neurological: Normal speech, Normal strength at 5/5 x4 extr Lymphatics: No axilla or inguinal lymphadenopathy - Studies Laboratory Data (last 24 hrs) 05/11/24 05/11/24 05/11/24 18:47 18:47 18:47 WBC 19.80 H Hgb 13.4 L Hct 42.7 Plt Count 1204 H PT 20.3 H INR 1.85 Sodium 136 Potassium 3.9 BUN 25 H Creatinine 1.12 Glucose 106 Magnesium 2.1 Total Bilirubin 1.3 H AST 29 ALT 37 Alkaline Phosphatase 93 Assessment and Plan - Plan Accelerated hypertension Blurring of vision CT head negative for any acute changes Subacute to chronic left occipital lobe infarct suspected Continue aspirin and statin Monitor closely under telemetry Continue home medications and titrate as needed Hydralazine as needed CAD status post CABG Continue home medications and titrate as needed Colitis moderate to severe Transverse to descending colon thickening noted in CT Patient denies any abdominal pain Will consult GI for possible colonoscopy as outpatient Left pleural effusion CT showed moderate loculated left pleural effusion Follow-up as an outpatient with pulmonology Dehydration Leukocytosis and hemoconcentration noted Started on IV hydration in moderation GI/DVT prophylaxis Advanced directive full code Discharge Plan: Home Plan to discharge in: 48 Hours - Advance Directives Does patient have a Living Will: Yes Does patient have a Durable POA for Healthcare: Yes - Code Status/Comfort Care Code Status: Full Code Time Spent Managing Pts Care (In Minutes): 48
[2024-05-12 02:59] VITALS: BMI 22.5
[2024-05-12] MEDS ORDERED: HYDRALAZINE HCL 20 MG/ML VIAL IV PRN (05:43)
[2024-05-12] MEDS: NA CHLORIDE 0.9% 500 ML IV SCH (06:00)
[2024-05-12] MEDS: LOSARTAN POTASSIUM 50 MG TABLET PO SCH (09:00)
[2024-05-12] MEDS: ASPIRIN EC 81 MG TAB PO SCH (09:00)
[2024-05-12] MEDS ORDERED: ASPIRIN EC 81 MG TAB PO ONE (09:16)
[2024-05-12] MEDS ORDERED: LOSARTAN POTASSIUM 50 MG TABLET ONE (09:16)
[2024-05-12 09:40] LABS: Absolute Eosinophils 0.1 K/uL (0-0.5); Absolute Lymphocytes (CBC) 1.4 K/uL (0.7-4.9); Absolute Monocytes 0.7 K/uL (0.1-1.3); Absolute Neutrophil 17.5 K/uL (1.8-8.0); Basophils % 0.2 % (0-1.3); Eosinophils % 0.5 % (0-4.4); Hematocrit 42.2 % (39.6-49.0); Hemoglobin 13.3 g/dL (13.6-17.9); Lymphocytes % 6.9 % (15.3-44.8); MCHC 31.4 g/dL (32.0-36.0); Monocytes % 3.7 % (3.3-12.3); Neutrophils % 88.7 % (41.7-73.7); Platelets 1121 thou/uL (152-406); Red Cell Distribution Width 20.8 % (12.1-15.2)
[2024-05-12 09:55] LABS: Anion Gap 10.3 mEq/L (5.0-15.0); Potassium 4.3 mEq/L (3.5-5.1)
[2024-05-12 10:51] LABS: Anisocytosis 1+; Atypical Lymphocytes 4 %; Band Neutrophils 1 % (0-1); Blood Morphology Comment NOTED (NOT SEEN); Differential Total Cells Count 100; Hypochromasia 1+; Lymphocytes 3 % (15-42); Microcytosis 1+; Monocytes 3 % (0-10); Ovalocytes 2+; Platelet Estimate INCR; Platelets, Giant NOTED; Poikilocytosis 2+; Segmented Neutrophils 89 % (40-80)
[2024-05-12 10:52] LABS: Burr Cells 2+
--- NOTE | 2024-05-12 15:44 | P.PN ---
Date of Service: 05/12/24 Patient seen and examined. He denies any abdominal pain. Labs reviewed and noted thrombocytosis and polycythemia. Follow-up with hematology as outpatient for further evaluation Aspirin daily. CT abdomen pelvis results reviewed and colitis. Patient reviewed by GI Dr. Clark who suspected ischemic colitis given other signs of peripheral vascular disease including left iliac artery and left femoral artery occlusions. Dr. Clark recommend outpatient follow-up for colonoscopy. Empiric IV antibiotics CT head reports Late subacute to chronic left occipital lobe infarct suspected. Obtain CTA head and neck given history of peripheral vascular disease. Aggressive antiplatelet therapy, Lipitor. No neurologic deficit. No problem with swallowing or speech or gait or limb weakness.
--- NOTE | 2024-05-12 16:33 | EKG ---
Test Date: 2024-05-11 Test Time: 18:39:56 [employer]: SRAVANI MEASUREMENT RESULTS: Intervals: Rate: 76 GA: 176 QRSD: 102 QT: 412 QTc: 463 [place]: P: 66 GA: 176 QRS: 54 T: 36 INTERPRETIVE STATEMENTS: Normal sinus rhythm Right atrial enlargement Borderline ECG Compared to ECG 02/18/2024 09:53:54 Atrial abnormality now present Sinus bradycardia no longer present Myocardial infarct finding no longer present Electronically Signed On 05-12-24 16:31:52 CDT by George Csae
--- NOTE | 2024-05-12 19:00 | CON ---
Date of Consultation: 05/12/2024 Reason For Consultation: Abdominal pain and colitis. History Of Present Illness: The patient is a 68-year-old white male with history of hypertension, hy perlipidemia, coronary artery disease , status post myocardial infarction and CABG. The patient pres ented to the hospital with blurry vision, high blood pressure after working all day outside in the t sun. was concerned about him as he came in, took his blood pressure, it was 220/120. She bro ught him to the hospital for further evaluation and workup. In the hospital, CT scan revealed the ryan kirkpatrick had pancolitis. The patient said he had left lower quadrant pain approximately 2/10 maximum, n ow down to 0, associated with blurry vision and headache. Stated that the pain was present after he came in from the house. Later on, he had hematochezia, but he denies any diarrhea, constipation, [place], vomiting, fevers, chills, chest pain, shortness of breath or headaches or blurry vision now. He denies any prior colonoscopy, EGD. He says he does have occasional dizzy spells that he has had arnulfo ry 2-6 weeks since his myocardial infarction in January this year. He has had approximately 3 total, he reports. Past Medical History: Significant for hypertension, hyperlipidemia, coronary artery disease, status post DC, myocardial infarction in January this 2023 with CABG this year as well. He has periphe ral vascular disease with bilateral lower extremity stents in 2013. CT scan abdomen and pelvis on admission revealed occluded left femoral and iliac arteries as well. He has a history of appendec meron and left index finger amputation, status post trauma. Home Medications: Include aspirin, atorvastatin, losartan, Lipitor, Cozaar, morphine. Allergies: NKDA. Social History: He is , 2 children, a boy and a girl. No tobacco. Quit when he had myocardi al infarction in January this year. No alcohol. Quit when he had myocardial infarction in January his year. Before that he would drink 2 beers a day. Father of coronary artery disease, myocard ial infarction. Mother is unknown to the patient. Review of Systems: The patient has left lower quadrant generalized abdominal pain on admission, headaches, blurry vision . He says all these symptoms have resolved since his admission with IV fluids, IV antibiotics, and f eels much better. He denies nausea, vomiting, fever, chills, night sweats, diarrhea, constipation, c hest pain, shortness of breath, headaches, lightheadedness, blurry vision. He states occasionally di zziness 2-6 weeks 3 times since January 2024 with his myocardial infarction. No chest pain. No current shortness of breath, seizure, syncope, muscle aches, joint aches, backaches. Physical Examination: GENERAL: He is 5 feet 7 inches, 144 pounds, BMI 22.6 kg/sq m. Data: He has a white count of 19.8, same as yesterday, hemoglobin 13.3, MCV of 67, that is pretty lo w. Actually his hemoglobin 13.3 is low too, so likely he has microcytic anemia. Platelet count of 1 121. Polys of 88.7%, yesterday was 89%, lymphocytes 7%, monocytes 4%, eosinophils 1%. PT of 20.3, I NR of 1.85. Sodium 138, potassium 4.3, chloride 110, bicarb 22, BUN of 21, creatinine of 0.9, glucos e 91. . Calcium 9.0, magnesium . Total bilirubin 1.2, direct bilirubin 0.4, in direct bilirubin 0.9, AST of 29, ALT 37, alkaline phosphatase 93. Creatine kinase 31. Troponin I el evated at 12.1. B-type natriuretic peptide of 780. Total protein 8.7, albumin . UA is ex tremely turbid, trace ketones, trace protein, otherwise negative. Chest x-ray, moderate to large lef t pleural effusion. CT abdomen and pelvis reveals moderate colitis throughout colon, mainly in the t ransverse descending colon. Moderate occluded left pleural effusion and left lung atelectasis. Mode rate prostatomegaly, also benign prostatic hypertrophy. 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 Impression: Probable ischemic colitis with pancolitis mainly in the transverse and descending colon, also consistent with the diagnosis of ischemic colitis. The patient states that he was dehydrated a fter working out in the sun all day long, came in with elevated blood pressure of 220/120 with blurry vision, headache and some left lower quadrant pain 2/10, now none, that resulted in hematochezia but no diarrhea or constipation. This is first time this has ever happened. The first time he has ever seen any blood. He denies prior colonoscopy, EGD which he will need at some point. CT scan also sh owed occluded left femoral and left external iliac artery also, consistent with peripheral vascular d isease, could have led to this ischemic colitis event. He also has a history of tobacco use which he quit in January of this year after his myocardial infarction. He denies currently any nausea, vomiting , fevers, chills, night sweats, diarrhea, constipation, chest pain, shortness of breath, headaches, l ightheadedness, blurred vision. CT of head reveals left occipital lobe low density lesion consistent with subacute to chronic infarct , not seen on January 16, 2024 study. Elevated platelet count of over 1121, consistent with thrombocytopenia, with elevated platelet count possible bone marrow disorder or bleeding, possibly leading to his iron deficiency anemia. Iron deficiency anemia with hemoglobin of 13.3 and low MCV of 67. Need to check iron numbers. History of hypertension, hyperlipidemia, coronary artery disease, status post DC January 2024 with CABG, peripheral vascular disease, bilateral stents in 2013, appendectomy, left index finger amputation se condary to trauma. Recommendation: 1.Continue IV fluids, IV antibiotics. 2.Check stool studies, the patient has diarrhea. 3.Diet, clear liquids to full liquids, GI soft as tolerated slowly. 4.Colonoscopy in 4-6 weeks. 5.Increase hydrating beverages. 6.Check iron numbers. 7.The patient is to maintain abstinence from tobacco. KRYS/UYEN Voice ID: [id number] Report ID: [id number]
[2024-05-12] MEDS: HYDROCODONE/APAP 5/325 MG TAB PO PRN (19:57)
[2024-05-12] MEDS: ATORVASTATIN 40 MG TAB PO SCH (20:00)
[2024-05-13 07:23] LABS: Absolute Basophils 0.2 K/uL (0-0.5); Absolute Eosinophils 0.3 K/uL (0-0.5); Absolute Lymphocytes (CBC) 1.1 K/uL (0.7-4.9); Absolute Monocytes 0.6 K/uL (0.1-1.3); Absolute Neutrophil 11.9 K/uL (1.8-8.0); Basophils % 1.2 % (0-1.3); Eosinophils % 2.4 % (0-4.4); Hematocrit 37.9 % (39.6-49.0); Hemoglobin 11.9 g/dL (13.6-17.9); Lymphocytes % 8.1 % (15.3-44.8); MCH 21.1 pg (27.0-35.0); MCHC 31.3 g/dL (32.0-36.0); MCV 67.5 fL (80-100); MPV 7.8 fL (7.6-11.3); Monocytes % 4.3 % (3.3-12.3); Platelets 915 thou/uL (152-406); RBC Red Blood Cell Count 5.61 M/uL (4.33-5.43); Red Cell Distribution Width 20.3 % (12.1-15.2)
[2024-05-13 07:37] LABS: Albumin 2.4 g/dL (3.4-5.0); Albumin/Globulin Ratio 0.6 (1.1-1.8); Bilirubin Total 0.7 mg/dL (0.2-1.0); Globulin 3.8 g/dL (2.3-3.5); Protein, Total 6.2 g/dL (6.4-8.2)
[2024-05-13] MEDS: CLOPIDOGREL 75 MG TABLET PO SCH (08:29)
[2024-05-13 09:27] VITALS: O2SAT 95
--- NOTE | 2024-05-13 10:03 | RAD REPORT ---
EXAMINATION: CTA NECK CLINICAL INDICATION: Male, 68 years old. Left occipital lobe infarct TECHNIQUE: Axial CT images were obtained from the aortic arch to the skull base after intravenous con trast utilizing angiographic protocol with 3D post-processing (maximum intensity projection images, volume rendered images and/or shaded surface rendered images). One or more of the following dose redu ction techniques were used: Automated exposure control, adjustment of the mA and/or kV according to patient size, and/or iterative reconstruction. Unless otherwise specified, incidental findings do not require dedicated imaging follow-up. [id number]. NASCET criteria used. Mild 0-49% stenosis Moderate 50-69% stenosis Severe 70-99% stenosis COMPARISON: Carotid duplex ultrasound 01/16/2024 FINDINGS: AORTA: The imaged aortic arch is normal. CCA: The common carotid arteries are patent and normal in caliber. ICA/ECA: Motion artifact is present at both of the ICAs which limits evaluation. The left ICA has a m oderate to severe stenosis estimated at approximately 70% at the left carotid bulb and just beyond the bulb. The right ICA has motion artifact and has less than a 50% stenosis which is not hemodynamic ally significant. VERTEBRAL: Moderate stenosis at the origin of the left vertebral artery. The right vertebral artery i s slightly dominant. SOFT TISSUE: No significant neck soft tissue abnormalities. Moderate to large left pleural effusion. Sternotomy. 3D images confirm these findings. IMPRESSION: 1. The left ICA has moderate to severe stenoses (approximately 70%) at the carotid bulb and just beyo nd the bulb. Note that on the carotid duplex from 01/16/2024, no elevated velocities were present which would indicate discordance. 2. No flow-limiting stenosis involving the right carotid system. 3. Moderate stenosis at the origin of the left vertebral artery.
--- NOTE | 2024-05-13 10:08 | RAD REPORT ---
EXAMINATION: CTA HEAD CLINICAL INDICATION: Male, 68 years old. Left occipital lobe infarct TECHNIQUE: Axial CT images were obtained through the head after intravenous contrast utilizing angiog raphic protocol with 3D post-processing (maximum intensity projection images, volume rendered images and/or shaded surface rendered images). One or more of the following dose reduction technique s were used: Automated exposure control, adjustment of the mA and/or kV according to patient size, and/or iterative reconstruction. Unless otherwise specified, incidental findings do not require dedic ated imaging follow-up. COMPARISON: CT 05/11/2024 FINDINGS: ICA: The petrous, cavernous, and supraclinoid segments of the bilateral internal carotid arteries are normal. The ophthalmic artery origins are visualized and normal. The posterior communicating arteries are patent. TUAN: Anterior cerebral arteries are normal bilaterally. The anterior communicating artery is patent. MCA: Middle cerebral arteries are normal bilaterally. WASTEWATER DESIGN ENGINEER: High-grade focal stenosis and and also with possible short segment occlusion at the junction of the left P1/P2 segments of the posterior cerebral artery. Multifocal stenoses are present involving the right WASTEWATER DESIGN ENGINEER. Vertebrobasilar: The vertebral arteries are patent. The basilar artery is normal in appearance. 3D images confirm these findings. IMPRESSION: 1. Posterior circulation: High-grade focal stenosis and possible short segment occlusion at the left P1/P2 segment of the posterior cerebral artery. This corresponds with the site of infarct in the left occipital lobe. 2. Anterior circulation: Intact. No aneurysm, stenosis, or occlusion. 2.
[2024-05-13 16:25] VITALS: TEMP 97.7
--- NOTE | 2024-05-13 16:25 | P.PN ---
Subjective Date of Service: 05/13/24 Chief Complaint: Elevated BP Patient denies any complaint. He denies any visual disturbance. He denies any chest pain or abdominal pain. No melena or hematochezia. Physical Examination - Vital Signs Temperature: 97.7 F Blood Pressure: 168/93 Pulse: 73 Respirations: 16 Pulse Ox (%): 97 Assessment And Plan - Plan Physical examination General: Alert and oriented x3, NAD, HEENT: Conjunctiva not pale, anicteric sclera. EOMI, no visual field defect. Neck: Supple, no elevated JVD Heart: Heart sounds 1 and 2 normal, regular rhythm, normal rate, no pedal edema Lungs: Clear to auscultation bilaterally, adequate breath sounds bilaterally, no rhonchi or crackles. Abdomen: Soft, nondistended, nontender, normal bowel sounds. Extremities: No tenderness, no deformity Skin: Normal skin turgor, no rash, no nodules or ulcers. Neuro: No focal motor deficit. Normal speech. Psychiatry: Normal mood, no agitation. Assessment and plan Occipital infarct-age indeterminate Accelerated hypertension CT head report subacute to chronic left occipital infarct. CTA head report high-grade focal stenosis or short segment occlusion of left posterior cerebral P1/p2 segment corresponding to area of infarct. It also report left vertebral artery moderate stenosis. CTA neck report about 70% left internal carotid artery stenosis. Continue aspirin and statin, add Plavix Case discussed with neurology Dr. Chi who stated patient may benefit from four-vessel angiogram and left carotid artery intervention. Transfer to [facility], patient has been accepted by neurointervention. Hydralazine as needed. Permissive hypertension. Thrombocytosis Unknown etiology, however could be reactive to anemia. Outpatient workup with hematology recommended. Patient and spouse have been informed. Continue to monitor CBC Aspirin. Peripheral vascular disease Patient has arterial occlusions at multiple locations including the cerebral circulation, posterior circulation, iliac vessels, lower extremity vessels having undergone stent placement. Aggressive therapy with aspirin Plavix and statins. CAD status post CABG Continue home medications and titrate as needed Chronic atrial fibrillation Rate controlled and stable Continue amiodarone. Holding Eliquis as patient may need intervention for cerebral artery occlusion or internal carotid artery stenosis. Iron deficiency anemia Continue iron replacement Follow-up with hematology as outpatient. Colitis Transverse to descending colon thickening noted in CT Patient denies any abdominal pain Patient seen and evaluated by GI Dr. Clark. Ischemic colitis suspected. IV hydration Dr. Clark recommend follow-up as outpatient for colonoscopy Left pleural effusion CT showed moderate loculated left pleural effusion. Unknown etiology. Will consider diagnostic thoracentesis if patient is still here by Tuesday 05/15. Follow-up as an outpatient with pulmonology Dehydration Leukocytosis and hemoconcentration noted Continue IV fluid. DVT prophylaxis: Lovenox Advanced directive: full code
[2024-05-13] MEDS: ENOXAPARIN 40 MG/0.4 ML SQ SCH (17:20)
[2024-05-13 17:33] LABS: Magnesium 1.8 mg/dL (1.6-2.4)
[2024-05-13 17:49] VITALS: BP 166/86
--- NOTE | 2024-05-13 17:55 | P.DS ---
Admission Date: 05/12/24 Discharge Date: 05/13/24 Disposition: TRANSFER TO [facility] Discharge Condition: FAIR Reason for Admission: Elevated BP Brief History of Present Illness: 68 yrs old Male with past medical history of hypertension, hyperlipidemia, CAD status post CABG was brought to ER with complaints of Blurred Vision and high blood pressure. Patient presents today with his with concerns of elevated blood pressure mostly. He states that he has been working outside in the heat all day today. He came inside complaining of some blurry vision and a headache so his checked his blood pressure noted it to be 220/120. He reports compliance with his blood pressure medications. Patient was assessed in the ER and had a workup which showed pleural effusion, colitis, left occipital infarct of undetermined age most likely chronic, and signs of peripheral artery disease and was admitted for further management. Hospital Course: Occipital infarct-age indeterminate Accelerated hypertension CT head report subacute to chronic left occipital infarct. CTA head report high-grade focal stenosis or short segment occlusion of left posterior cerebral P1/p2 segment corresponding to area of infarct. It also report left vertebral artery moderate stenosis. CTA neck report about 70% left internal carotid artery stenosis. Continue aspirin and statin, add Plavix Permissive hypertension. Case discussed with neurology Dr. Chi who stated patient may benefit from four-vessel angiogram and left carotid artery intervention. Transfer to [facility], patient has been accepted by neurointervention. Thrombocytosis Unknown etiology, however could be reactive to anemia. Outpatient workup with hematology recommended. Patient and spouse have been informed. Aspirin. Peripheral vascular disease Patient has arterial occlusions at multiple locations including the cerebral circulation, posterior circulation, iliac vessels, lower extremity vessels having undergone stent placement. Aggressive therapy with aspirin Plavix and statins. CAD status post CABG Continue home medications and titrate as needed Chronic atrial fibrillation Rate controlled and stable Continue amiodarone. Holding Eliquis as patient may need intervention for cerebral artery occlusion or internal carotid artery stenosis. Iron deficiency anemia Continue iron replacement Follow-up with hematology as outpatient. Colitis Transverse to descending colon thickening noted in CT Patient denies any abdominal pain Patient seen and evaluated by GI Dr. Clark. Ischemic colitis suspected. Treated with IV hydration Dr. Clark recommend follow-up as outpatient for colonoscopy Left pleural effusion CT showed moderate loculated left pleural effusion. Unknown etiology. Patient may need diagnostic thoracentesis. Follow-up as an outpatient with pulmonology Dehydration Leukocytosis and hemoconcentration noted Treated with IV fluid. WBC and platelet counts trended down. Vital Signs/Physical Exam: Temp Pulse Resp BP Pulse Ox 97.7 F 73 16 166/86 H 97 05/13/24 16:43 05/13/24 16:43 05/13/24 16:43 05/13/24 17:49 05/13/24 16:43 General: Alert, In no apparent distress, Oriented x3 HEENT: Mucous membr. moist/pink Neck: Supple, JVD not distended Respiratory: Clear to auscultation bilaterally, Normal air movement Cardiovascular: No edema, Regular rate/rhythm, Normal S1 S2 Gastrointestinal: Normal bowel sounds, Soft and benign, Non-distended, No tenderness Musculoskeletal: No swelling Integumentary: No rashes, No cyanosis Neurological: Normal strength at 5/5 x4 extr Laboratory Data at Discharge: WBC 14.10 thou/uL (4.3-10.9) H 05/13/24 06:42 Hgb 11.9 g/dL (13.6-17.9) L D 05/13/24 06:42 Hct 37.9 % (39.6-49.0) L 05/13/24 06:42 Plt Count 915 thou/uL (152-406) H 05/13/24 06:42 PT 20.3 SECONDS (9.4-12.5) H 05/11/24 18:47 INR 1.85 05/11/24 18:47 Sodium 140 mEq/L (136-145) 05/13/24 06:42 Potassium 4.0 mEq/L (3.5-5.1) 05/13/24 06:42 BUN 18 mg/dL (7-18) 05/13/24 06:42 Creatinine 0.86 mg/dL (0.70-1.30) 05/13/24 06:42 Glucose 73 mg/dL (74-106) L 05/13/24 06:42 Phosphorus 3.0 mg/dL (2.5-4.9) 05/13/24 17:08 Magnesium 1.8 mg/dL (1.6-2.4) 05/13/24 17:08 Total Bilirubin 0.7 mg/dL (0.2-1.0) 05/13/24 06:42 AST 18 U/L (15-37) 05/13/24 06:42 ALT 20 U/L (16-61) 05/13/24 06:42 Alkaline Phosphatase 67 U/L (45-117) 05/13/24 06:42 Home Medications: Aspirin 81 mg PO DAILY 01/16/24 Amiodarone HCl [Cordarone Tab] 200 mg PO BID 05/12/24 Apixaban [Eliquis] 5 mg PO BID 05/12/24 Atorvastatin Calcium [Lipitor] 40 mg PO BEDTIME 05/12/24 Ferrous Sulfate [Feosol] 325 mg PO DAILY 05/12/24 Metoprolol Tartrate [Lopressor] 12.5 mg PO BID 05/12/24 Multivitamin/Iron/Folic Acid [Centrum Adults Tablet] 1 each PO DAILY 05/12/24 [facility]: [facility] [Primary Care Provider] - Time spent managing pt's care (in minutes): 38
[2024-05-13] MEDS ORDERED: METOPROLOL TAR 25 MG TAB PO SCH (21:00)
[2024-05-13] MEDS ORDERED: AMIODARONE HCL 200 MG TAB PO SCH (21:00)
[2024-05-14] MEDS ORDERED: FERROUS SULFATE 325 MG TAB PO SCH (09:00)
== END 2024-05-13 19:53 | disposition short-term general hospital (02) | DRG 65 ==
LOC: ER 18:12 → ERHOLD 05-12 00:56 → 2ND 05-12 12:30
PROVIDERS: ADMIT Family Medicine; ATTEND Internal Medicine
DX: I63.9 Cerebral infarction, unspecified (principal); A09 Infectious gastroenteritis and colitis, unspecified; K55.9 Vascular disorder of intestine, unspecified; I48.20 Chronic atrial fibrillation, unspecified; J90 Pleural effusion, not elsewhere classified; E78.00 Pure hypercholesterolemia, unspecified; I10 Essential (primary) hypertension; E86.0 Dehydration; D50.9 Iron deficiency anemia, unspecified; I73.9 Peripheral vascular disease, unspecified; I65.02 Occlusion and stenosis of left vertebral artery; D75.839 Thrombocytosis, unspecified; I25.10 Atherosclerotic heart disease of native coronary artery without angina pectoris; F17.210 Nicotine dependence, cigarettes, uncomplicated; Z95.1 Presence of aortocoronary bypass graft; Z79.82 Long term (current) use of aspirin; Z90.49 Acquired absence of other specified parts of digestive tract; Z89.022 Acquired absence of left finger(s); Z79.899 Other long term (current) drug therapy
CPT/HCPCS: 36415; 70450; 70496; 70498; 71045; 71260; 74177; 80048; 80053; 80076; 81001; 82550; 83540; 83605; 83735; 83880; 84100; 84466; 84484; 85025; 85610; 87040; 93005; 94760; 96365; 99285; J0696; J1650; J2543; J7030; Q9967

== ENCOUNTER 2024-08-18 10:55 | Emergency (ER) | payer OTHER, SELFPAY ==
[2024-08-18 11:55] LABS: Absolute Basophils 0.2 K/uL (0-0.5); Absolute Eosinophils 0.2 K/uL (0-0.5); Absolute Lymphocytes (CBC) 1.3 K/uL (0.7-4.9); Absolute Monocytes 0.7 K/uL (0.1-1.3); Absolute Neutrophil 10.8 K/uL (1.8-8.0); Basophils % 1.4 % (0-1.3); Eosinophils % 1.8 % (0-4.4); Hematocrit 41.3 % (39.6-49.0); Hemoglobin 13.4 g/dL (13.6-17.9); Lymphocytes % 9.6 % (15.3-44.8); MCH 24.7 pg (27.0-35.0); MCHC 32.4 g/dL (32.0-36.0); MCV 76.2 fL (80-100); MPV 8.1 fL (7.6-11.3); Monocytes % 5.2 % (3.3-12.3); Platelets 984 thou/uL (152-406); RBC Red Blood Cell Count 5.42 M/uL (4.33-5.43); Red Cell Distribution Width 28.7 % (12.1-15.2)
[2024-08-18 11:59] LABS: PT Prothrombin Time 19.1 SECONDS (9.4-12.5); PTT, Activated Partial Thromb 40.9 SECONDS (24.3-36.9); Protime INR 1.73
--- NOTE | 2024-08-18 12:00 | RAD REPORT ---
EXAM: CT brain without contrast HISTORY: HEADACHE COMPARISON: 05/11/2024 TECHNIQUE: Multiple contiguous axial images were obtained and a CT of the brain without contrast. Sag ittal and coronal reformats were performed. One or more of the following dose reduction techniques were used: Automated exposure control, adjust ment of the mA and/or kV according to patient size, and/or iterative reconstruction. FINDINGS: No evidence of hydrocephalus, intracranial hemorrhage, or extra-axial fluid collection. Mild brain atrophy with mild periventricular and deep white matter chronic microvascular ischemic ch anges present. Gliosis in the left occipital lobe compatible with prior infarction. No evidence of midline shift or areas of brain edema. The calvarium is intact. The visualized paranasal sinuses and mastoid air cells are essentially clear . IMPRESSION: No evidence of acute intracranial abnormality.
--- NOTE | 2024-08-18 12:05 | RAD REPORT ---
EXAMINATION: CTA HEAD CLINICAL INDICATION: Elevated platelets > 1000;Headache TECHNIQUE: Axial CT images were obtained through the head after intravenous contrast utilizing angiog raphic protocol with 3D post-processing (maximum intensity projection images, volume rendered images and/or shaded surface rendered images). One or more of the following dose reduction technique s were used: Automated exposure control, adjustment of the mA and/or kV according to patient size, and/or iterative reconstruction. Unless otherwise specified, incidental findings do not require dedic ated imaging follow-up. COMPARISON: 05/13/2024 FINDINGS: ICA: The petrous, cavernous, and supraclinoid segments of the bilateral internal carotid arteries are normal. The ophthalmic artery origins are visualized and normal. The posterior communicating arteries are patent. TUAN: Anterior cerebral arteries are normal bilaterally. The anterior communicating artery is patent. MCA: Middle cerebral arteries are normal bilaterally. MANAGER DAIRY: High-grade stenosis noted left P1/P2 junction. Multifocal areas of mild stenosis seen right P1 a nd P2 segments. Vertebrobasilar: The vertebral arteries are patent. The basilar artery is normal in appearance. Mild ly dominant right vertebral artery. 3D images confirm these findings. IMPRESSION: Focal high-grade stenosis left P1/P2 junction, similar to prior study.
[2024-08-18 12:06] LABS: ALT/SGPT 20 U/L (16-61); AST/SGOT 17 U/L (15-37); Albumin 2.8 g/dL (3.4-5.0); Albumin/Globulin Ratio 0.6 (1.1-1.8); Alkaline Phosphatase 91 U/L (45-117); Anion Gap 8.2 mEq/L (5.0-15.0); BUN Blood Urea Nitrogen 23 mg/dL (7-18); Bicarbonate 27 mEq/L (21-32); Bilirubin Total 1.2 mg/dL (0.2-1.0); Globulin 4.8 g/dL (2.3-3.5); Glomerular Filtration Rate 71 ml/min (=/>90); Glucose Level 96 mg/dL (74-106); Potassium 4.2 mEq/L (3.5-5.1); Protein, Total 7.6 g/dL (6.4-8.2); Sodium Level 136 mEq/L (136-145)
[2024-08-18 12:07] LABS: Bilirubin Direct < 0.2 mg/dL (0-0.2)
[2024-08-18 12:57] LABS: Anisocytosis 3+; Blood Morphology Comment NOTED (NOT SEEN); Hypochromasia 1+; Microcytosis 2+; Ovalocytes 1+; Platelet Estimate INCR; Platelets, Giant NOTED; Poikilocytosis 1+; White Blood Cell Scan OK (OK)
--- NOTE | 2024-08-18 13:01 | ER ---
Nurse's Notes [facility] Name: Derek Avery Age: 69 yrs Sex: Male : 1955 Arrival Date: 08/18/2024 Time: 10:55 Bed 4 Private MD: Diagnosis: Elevated platelets, headache Presentation: 08/18 11:12 Chief complaint: Patient states: Here for elevated platelet levels. Coronavirus screen: ll1 Client denies travel out of the [place] in the last 14 days. At this time, the client does not indicate any symptoms associated with coronavirus-19. Ebola Screen: Patient denies travel to an Ebola-affected area in the 21 days before illness onset. Initial Sepsis Screen: Does the patient meet any 2 criteria? No. Patient's initial sepsis screen is negative. Does the patient have a suspected source of infection? No. Patient's initial sepsis screen is negative. Risk Assessment: Do you want to hurt yourself or someone else? Patient reports no desire to harm self or others. Onset of symptoms is unknown. 11:12 Method Of Arrival: Ambulatory ll1 11:12 Acuity: AUGUST 3 ll1 Triage Assessment: 11:12 General: Appears in no apparent distress. Behavior is calm, cooperative, appropriate ll1 for age. Pain: Denies pain. Musculoskeletal: Reports weakness in right leg and left leg random weakness both legs. Historical: - Allergies: 11:12 No Known Allergies; ll1 - PMHx: 11:12 High Cholesterol; Hypertension; ll1 - PSHx: 11:12 cardiac bypass; Coronary artery bypass graft; ll1 - Immunization history:: Adult Immunizations up to date. - Infectious Disease History:: Denies. - Social history:: Smoking status: Patient reports the use of cigarette tobacco products, smokes .25 packs per day. Screenin:23 [facility] ED Fall Risk Assessment (Adult) History of falling in the last 3 months, ph including since admission No falls in past 3 months (0 pts) Confusion or Disorientation No (0 pts) Intoxicated or Sedated No (0 pts) Impaired Gait No (0 pts) Mobility Assist Device Used No (0 pt) Altered Elimination No (0 pt) Score/Fall Risk Level 0 - 2 = Low Risk Oriented to surroundings, Maintained a safe environment, Used ambulatory aids as needed (educated on \T\ assisted with). Abuse screen: Denies threats or abuse. Denies injuries from another. Nutritional screening: No deficits noted. Tuberculosis screening: No symptoms or risk factors identified. Assessment: 11:50 General: Appears in no apparent distress. comfortable, well groomed, Behavior is calm, ph cooperative, appropriate for age. Pain: Denies pain. Neuro: Level of Consciousness is awake, alert, obeys commands, Oriented to person, place, time, situation. Cardiovascular: Capillary refill < 3 seconds in bilateral fingers Patient's skin is warm and dry. Respiratory: Airway is patent Respiratory effort is even, unlabored. Derm: Skin is pink, warm \T\ dry. Vital Signs: 11:23 BP 136 / 69; Pulse 60; Resp 18; Temp 98; Pulse Ox 99% on R/A; Weight 68.04 kg; Height 5 ll1 ft. 8 in. ; Pain 0/10; 12:24 BP 132 / 70; Pulse 64; Resp 18; Pulse Ox 99% on R/A; ph 11:23 Body Mass Index 22.81 (68.04 kg, 172.72 cm) ll1 11:23 Pain Scale: Adult ll1 ED Course: 11:00 Patient arrived in ED. ra3 11:02 Angelique Hammond MD is Attending Physician. sp3 11:12 Triage completed. ll1 11:12 Arm band placed on Patient placed in an exam room, on a stretcher. ll1 11:23 Annia Conley, RN is Primary Nurse. ph 11:23 Patient has correct armband on for positive identification. Bed in low position. Call light in reach. Side rails up X 1. Pulse ox on. NIBP on. Door closed. Noise minimized. Pillow given. 11:46 Basic Metabolic Panel Sent. ph 11:46 CBC with Diff Sent. ph 11:46 Hepatic Function Sent. ph 11:46 Protime (+inr) Sent. ph 11:46 Ptt, Activated Sent. ph 11:46 Initial lab(s) drawn, by me, sent to lab. Inserted saline lock: 22 gauge in right ph forearm, using aseptic technique. Blood collected. Flushed with 10 mL NS. 11:54 CT Head Brain wo Cont In Process Unspecified. EDMS 11:55 CT Head Angio In Process Unspecified. EDMS 13:02 Mariel Ortiz MD is Referral Physician. sp3 13:13 No provider procedures requiring assistance completed. IV discontinued, intact, ph bleeding controlled, No redness/swelling at site. Pressure dressing applied. Administered Medications: No medications were administered Medication: 11:23 VIS not applicable for this client. ph Outcome: 13:01 Discharge ordered by . sp3 13:13 Discharged to home ambulatory, with significant other, ph 13:13 Condition: good 13:13 Discharge instructions given to patient, Instructed on discharge instructions, follow up and referral plans. Demonstrated understanding of instructions, follow-up care, 13:14 Patient left the ED. ph Signatures: Dispatcher [employer] EDMS Annia Conley RN RN ph Jhoana Diamond RN RN ll1 Angelique Hammond MD MD sp3 Johanna Souza 3
--- NOTE | 2024-08-18 13:01 | EDPHYS ---
Physician Documentation [facility] Name: Derek Avery Age: 69 yrs Sex: Male : 1955 Arrival Date: 08/18/2024 Time: 10:55 Bed 4 Private MD: ED Physician Angelique Hammond HPI: 08/18 11:42 This 69 yrs old Male presents to ER via Ambulatory with complaints of headache and high sp3 platelet count. 11:42 69-year-old male with history of hyperlipidemia, hypertension that presents to the ED sp3 sent by the [place] for elevated platelet count of greater than 1000 and mild headache. Patient has had similar episode in the past and was seen by hematology at [facility]. They state that they were not told about any of the results or potential diagnoses. There was discussion about needing a bone marrow biopsy which she has to date not been taken. Other than the mild headache, there are no other symptoms. He denies trauma, fever, neck pain, chest pain, shortness of breath, back pain, abdominal pain, nausea, vomiting, diarrhea, syncope, near syncope, or any other signs or symptoms on ROS at this time. There is no bleeding either.. Historical: - Allergies: 11:12 No Known Allergies; ll1 - PMHx: 11:12 High Cholesterol; Hypertension; ll1 - PSHx: 11:12 cardiac bypass; Coronary artery bypass graft; ll1 - Immunization history:: Adult Immunizations up to date. - Infectious Disease History:: Denies. - Social history:: Smoking status: Patient reports the use of cigarette tobacco products, smokes .25 packs per day. ROS: 11:43 Constitutional: Negative for fever, chills, and weight loss, Eyes: Negative for injury, sp3 pain, redness, and discharge, ENT: Negative for injury, pain, and discharge, Neck: Negative for injury, pain, and swelling, Cardiovascular: Negative for chest pain, palpitations, and edema, Respiratory: Negative for shortness of breath, cough, wheezing, and pleuritic chest pain, Abdomen/GI: Negative for abdominal pain, nausea, vomiting, diarrhea, and constipation, Back: Negative for injury and pain, MS/Extremity: Negative for injury and deformity, Skin: Negative for injury, rash, and discoloration, Psych: Negative for depression, anxiety, suicide ideation, homicidal ideation, and hallucinations, Allergy/Immunology: Negative for hives, rash, and allergies, Endocrine: Negative for neck swelling, polydipsia, polyuria, polyphagia, and marked weight changes, Hematologic/Lymphatic: Negative for swollen nodes, abnormal bleeding, and unusual bruising, 11:43 All other systems are negative, Exam: 11:43 Constitutional: This is a well developed, well nourished patient who is awake, alert, sp3 and in no acute distress. Head/Face: Normocephalic, atraumatic. Eyes: Pupils equal round and reactive to light, extra-ocular motions intact. Lids and lashes normal. Conjunctiva and sclera are non-icteric and not injected. Cornea within normal limits. Periorbital areas with no swelling, redness, or edema. Neck: Trachea midline, no thyromegaly or masses palpated, and no cervical lymphadenopathy. Supple, full range of motion without nuchal rigidity, or vertebral point tenderness. No Meningismus. Chest/axilla: Normal chest wall appearance and motion. Nontender with no deformity. No lesions are appreciated. Cardiovascular: Regular rate and rhythm with a normal S1 and S2. No gallops, murmurs, or rubs. Normal PMI, no JVD. No pulse deficits. Respiratory: Lungs have equal breath sounds bilaterally, clear to auscultation and percussion. No rales, rhonchi or wheezes noted. No increased work of breathing, no retractions or nasal flaring. Abdomen/GI: Soft, non-tender, with normal bowel sounds. No distension or tympany. No guarding or rebound. No evidence of tenderness throughout. Back: No spinal tenderness. No costovertebral tenderness. Full range of motion. Skin: Warm, dry with normal turgor. Normal color with no rashes, no lesions, and no evidence of cellulitis. MS/ Extremity: Pulses equal, no cyanosis. Neurovascular intact. Full, normal range of motion. Psych: Awake, alert, with orientation to person, place and time. Behavior, mood, and affect are within normal limits. Vital Signs: 11:23 BP 136 / 69; Pulse 60; Resp 18; Temp 98; Pulse Ox 99% on R/A; Weight 68.04 kg; Height 5 ll1 ft. 8 in. ; Pain 0/10; 12:24 BP 132 / 70; Pulse 64; Resp 18; Pulse Ox 99% on R/A; ph 11:23 Body Mass Index 22.81 (68.04 kg, 172.72 cm) ll1 11:23 Pain Scale: Adult ll1 MDM: 11:15 Medical Screening Exam initiated sp3 11:44 Data reviewed: vital signs, nurses notes, lab test result(s), radiologic studies. ED sp3 course: 69-year-old male with headache and elevated platelets. Broad differential diagnosis including hematological pathology, intracranial pathology including clot, idiopathic headache, among others. Will repeat labs including CBC and obtain CT scan of the head as well as angiogram. Disposition pending workup and patient course with possible outpatient follow-up to hematology.. 12:57 ED course: Full workup negative except platelet count 984 on repeat here. Vital signs sp3 are normal and CT scan of the head and CTA brain negative. Have discussed case with Dr. Kwan hematology he was recommended outpatient follow-up as long as there is no bleeding. Patient is a [facility] patient so will need a referral however I will give Dr. Kwan follow-up as well. No further emergency exists and continued outpatient workup and probable bone marrow biopsy needed.. 08/18 11:32 Order name: Basic Metabolic Panel; Complete Time: 12:08 sp3 08/18 11:32 Order name: CBC with Diff; Complete Time: 12:59 sp3 08/18 11:32 Order name: Hepatic Function; Complete Time: 12:08 sp3 08/18 11:32 Order name: Protime (+inr); Complete Time: 12:07 sp3 08/18 11:32 Order name: Ptt, Activated; Complete Time: 12:07 sp3 08/18 12:58 Order name: CBC Smear Scan; Complete Time: 12:59 EDMS 08/18 11:32 Order name: CT Head Brain wo Cont; Complete Time: 12:07 sp3 08/18 11:45 Order name: CT Head Angio; Complete Time: 12:07 sp3 08/18 11:32 Order name: Cardiac monitoring; Complete Time: 11:46 sp3 08/18 11:32 Order name: Labs collected and sent; Complete Time: 11:46 sp3 08/18 11:32 Order name: O2 Sat Monitoring; Complete Time: 11:46 sp3 Administered Medications: No medications were administered Disposition Summary: 08/18/24 13:01 Discharge Ordered Notes: Location: Home sp3 Condition: Stable sp3 Diagnosis - Elevated platelets, headache sp3 Followup: sp3 - With: Private Physician - When: Upon discharge from the Emergency Department - Reason: Continuance of care Followup: sp3 - With: Mariel Ortiz MD - When: Upon discharge from the Emergency Department - Reason: Recheck today's complaints Discharge Instructions: - Discharge Summary Sheet sp3 - General Headache Without Cause sp3 Forms: - Medication Reconciliation Form sp3 - Antibiotic Education sp3 - Prescription Opioid Use sp3 - Patient Portal Instructions sp3 - Leadership Thank You Letter sp3 Signatures: Dispatcher [employer] EDMS Annia Conley RN RN Jhoana Diamond RN RN ll1 Angelique Hammond MD MD sp3 Corrections: (The following items were deleted from the chart) 11:33 11:33 BASIC METABOLIC PANEL+C.LAB.BRZ ordered. EDMS EDMS 11:33 11:33 CBC+H.LAB.BRZ ordered. EDMS EDMS 11:33 11:33 HEPATIC FUNCTION+C.LAB.BRZ ordered. EDMS EDMS 11:33 11:33 PROTIME (+INR)+COAG.LAB.BRZ ordered. EDMS EDMS 11:33 11:33 PTT, ACTIVATED+COAG.LAB.BRZ ordered. EDMS EDMS 11:33 11:33 Head Brain Wo Cont+CT.RAD.BRZ ordered. EDMS EDMS 11:46 11:44 ED course: 69-year-old male with headache and elevated platelets. Broad sp3 differential diagnosis including intracranial pathology, clot,. sp3
[2024-08-18 13:24] VITALS: TEMP 98; O2SAT 99
[2024-08-18 13:51] VITALS: BP 132/70
== END 2024-08-18 13:14 | disposition home or self-care (01) ==
LOC: ER 10:55
DX: R51.9 Headache, unspecified (principal); R79.89 Other specified abnormal findings of blood chemistry
CPT/HCPCS: 36415; 70450; 70496; 80048; 80076; 85025; 85610; 85730; 99284; Q9967

== ENCOUNTER 2024-10-13 10:08 | Observation (INO) | payer OTHER, SELFPAY ==
[2024-10-13 10:41] LABS: Absolute Basophils 0.1 K/uL (0-0.5); Absolute Eosinophils 0.3 K/uL (0-0.5); Absolute Monocytes 0.7 K/uL (0.1-1.3); Absolute Neutrophil 11.6 K/uL (1.8-8.0); Basophils % 0.6 % (0-1.3); Eosinophils % 2.4 % (0-4.4); Hemoglobin 12.9 g/dL (13.6-17.9); Lymphocytes % 7.4 % (15.3-44.8); MCH 23.7 pg (27.0-35.0); MCHC 32.3 g/dL (32.0-36.0); MCV 73.5 fL (80-100); MPV 8.7 fL (7.6-11.3); Monocytes % 5.2 % (3.3-12.3); Neutrophils % 84.4 % (41.7-73.7); Platelets 833 thou/uL (152-406); RBC Red Blood Cell Count 5.44 M/uL (4.33-5.43); Red Cell Distribution Width 20.8 % (12.1-15.2)
[2024-10-13] MEDS ORDERED: LORazepam 2 MG/ML VIAL ONE (10:44)
--- NOTE | 2024-10-13 10:44 | RAD REPORT ---
EXAM: CT brain without contrast HISTORY: Right facial droop. COMPARISON: August 2024 TECHNIQUE: Multiple contiguous axial images were obtained and a CT of the brain without contrast. Sagittal and coronal reformats were performed. Automated exposure control, adjustment of the mA and/or kV according to patient size, and/or itera tive reconstruction. Unless otherwise specified, incidental findings do not require dedicated imaging follow-u FINDINGS: An intracranial bleed is not seen Ventricles are normal caliber No extra-axial fluid collection noted Moderate to large low-density left occipital lobe compatible with old infarction. No fluid within the visualized sinuses or mastoids noted. IMPRESSION: No acute intracranial abnormality noted. If the patient's symptoms persist MRI of the brain would be recommended. Dr. Craig from the emergency room was notified at 10:39 AM October 13, 2024
[2024-10-13 10:45] LABS: PT Prothrombin Time 16.9 SECONDS (10.0-13.0); PTT, Activated Partial Thromb 39.8 SECONDS (24.3-36.9); Protime INR 1.51
--- NOTE | 2024-10-13 10:53 | RAD REPORT ---
EXAMINATION: CTA HEAD CLINICAL INDICATION: Right facial droop TECHNIQUE: Axial CT images were obtained through the head after 100 cc Isovue-370 intravenous contras t utilizing angiographic protocol with 3D post-processing (maximum intensity projection images, volume rendered images and/or shaded surface rendered images). One or more of the following dose red uction techniques were used: Automated exposure control, adjustment of the mA and/or kV according to patient size, and/or iterative reconstruction. Unless otherwise specified, incidental findings do not require dedicated imaging follow-up. COMPARISON: None FINDINGS: Distal internal carotid, basilar, anterior cerebral, middle cerebral and right posterior cerebral art eries do not demonstrate a significant stenosis High-grade stenosis proximal left posterior cerebral artery unchanged. An aneurysm not noted. No large vessel occlusion IMPRESSION: No acute vascular abnormality displayed
[2024-10-13 10:54] LABS: Anion Gap 9.2 mEq/L (5.0-15.0); Potassium 4.2 mEq/L (3.5-5.1); Troponin High Sensitivity 4.4 pg/mL (<58.9)
--- NOTE | 2024-10-13 10:54 | RAD REPORT ---
EXAMINATION: Neck Angio CLINICAL INDICATION: Right facial droop TECHNIQUE: Axial CT images were obtained from the aortic arch to the skull base after intravenous adm inistration of 100 cc Isovue-370 utilizing angiographic protocol. Multiplanar reformats, as well as 3D post-processing (maximum intensity projection images, volume rendered images and/or shaded surface rendered images) were generated and reviewed. One or more of the following dose reduction techniques were used: Automated exposure control, adjustment of the mA and/or kV according to patient size, and/or iterative reconstruction. Unless otherwise specified, incidental findings do not require dedicated imaging follow-up. COMPARISON: 2023 FINDINGS: The visualized aortic arch and great vessels do not demonstrate a significant abnormality Marked plaque proximal left internal carotid artery. Moderate plaque proximal left vertebral artery. Mild plaque remainder of the common carotid, internal carotid and external carotid arteries bilateral ly Right vertebral artery unremarkable. Methods for NASCET criteria: Mild stenosis, 0% to 49%; Moderate stenosis 50% to 69%; Severe stenosis, 70% to 99% IMPRESSION: Marked plaque proximal left internal carotid artery resulting in an approximately 85% stenosis
--- NOTE | 2024-10-13 11:45 | RAD REPORT ---
Procedure: Chest Single View HISTORY: Shortness of breath COMPARISON: 2023 FINDINGS: Moderate loculated left pleural effusion mildly diminished in size from the prior exam Opacities within the left lung base probably atelectasis Right lung appears clear of acute infiltrate. The heart is mildly enlarged. Post surgical changes involve the chest.
--- NOTE | 2024-10-13 11:53 | RAD REPORT ---
EXAMINATION: MRI BRAIN WITHOUT CONTRAST CLINICAL INDICATION: Right-sided numbness TECHNIQUE: Multiplanar multisequence MR images of the brain were obtained without intravenous contras t. Unless otherwise specified, incidental findings do not require dedicated imaging follow-up. COMPARISON: October 14, [address] FINDINGS: Moderate to large area of abnormal signal left occipital lobe has the appearance of an old infarct wi th laminar cortical necrosis. Apparent areas of abnormal signal within the cerebellum probably an artifact. Diffusion weighted/ADC mapping does not demonstrate evidence of an acute infarction. Ventricles are normal caliber. No extra-axial fluid collection. No fluid within the sinuses/mastoid seen IMPRESSION: No acute intracranial abnormalities displayed
--- NOTE | 2024-10-13 12:51 | EDPHYS ---
Physician Documentation [facility] Name: Derek Avery Age: 69 yrs Sex: Male : 1955 Arrival Date: 10/13/2024 Time: 10:08 Bed 4 Private MD: ED Physician Regla Craig HPI: 10/13 13:24 This 69 yrs old Male presents to ER via EMS with complaints of Facial Droop. gb1 13:24 Mr. Avery is a 69-year-old male that was at home just prior to arrival 1 hour that gb1 started with right-sided weakness and facial droop. It resolved upon arrival to the ER and lasted about 10 to 15 minutes. 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 He has a history of hyperlipidemia, hypertension and CVA. He is currently on Eliquis 5 mg. He denies any chest pain or shortness of breath. He denies any fall or trauma.. Historical: - Allergies: 16:43 No Known Allergies; iw - Home Meds: 10:26 Eliquis 5 mg Oral tablet [Active]; amiodarone 200 mg Oral tablet [Active]; aspirin 81 iw mg Oral capsule 1 cap daily [Active]; atorvastatin 40 mg Oral tablet 1 tab daily [Active]; ferrous sulfate 325 mg (65 mg iron) Oral tablet [Active]; metoprolol tartrate 25 mg Oral tablet [Active]; - PMHx: 10:17 High Cholesterol; Hypertension; iw 10:26 Cerebrovascular accident; iw - PSHx: 10:17 cardiac bypass; Coronary artery bypass graft; iw - Immunization history:: Adult Immunizations not up to date. - Infectious Disease History:: Denies. - Social history:: Smoking status: Patient reports the use of cigarette tobacco products. Exam: 13:24 Constitutional: This is a well developed, well nourished patient who is awake, alert, gb1 and in no acute distress. Head/Face: Normocephalic, atraumatic. Eyes: Pupils equal round and reactive to light, extra-ocular motions intact. Lids and lashes normal. Conjunctiva and sclera are non-icteric and not injected. Cornea within normal limits. Periorbital areas with no swelling, redness, or edema. ENT: Nares patent. No nasal discharge, no septal abnormalities noted. Tympanic membranes are normal and external auditory canals are clear. Oropharynx with no redness, swelling, or masses, exudates, or evidence of obstruction, uvula midline. Mucous membranes moist. Neck: Trachea midline, no thyromegaly or masses palpated, and no cervical lymphadenopathy. Supple, full range of motion without nuchal rigidity, or vertebral point tenderness. No Meningismus. Chest/axilla: Normal chest wall appearance and motion. Nontender with no deformity. No lesions are appreciated. Cardiovascular: Regular rate and rhythm with a normal S1 and S2. No gallops, murmurs, or rubs. Normal PMI, no JVD. No pulse deficits. Respiratory: Lungs have equal breath sounds bilaterally, clear to auscultation and percussion. No rales, rhonchi or wheezes noted. No increased work of breathing, no retractions or nasal flaring. Abdomen/GI: Soft, non-tender, with normal bowel sounds. No distension or tympany. No guarding or rebound. No evidence of tenderness throughout. Back: No spinal tenderness. No costovertebral tenderness. Full range of motion. Skin: Warm, dry with normal turgor. Normal color with no rashes, no lesions, and no evidence of cellulitis. MS/ Extremity: Pulses equal, no cyanosis. Neurovascular intact. Full, normal range of motion. Neuro: Awake and alert, GCS 15, oriented to person, place, time, and situation. Cranial nerves II-XII grossly intact. Motor strength 5/5 in all extremities. Sensory grossly intact. Cerebellar exam normal. Normal gait. Vital Signs: 10:27 BP 147 / 88; Pulse 55; Resp 18; Temp 97.2; Pulse Ox 97% on R/A; iw 11:00 BP 135 / 89; Pulse 51; Resp 16; Pulse Ox 97% on R/A; Pain 0/10; iw 12:00 BP 145 / 87; Pulse 51; Resp 16; Pulse Ox 97% on R/A; Pain 0/10; iw 13:30 BP 148 / 84; Pulse 50; Resp 16; Pulse Ox 97% on R/A; Pain 0/10; iw 11:00 Pain Scale: Adult iw 12:00 Pain Scale: Adult iw 13:30 Pain Scale: Adult iw NIH Stroke Scale Scores: 10:16 NIHSS Score: 0 iw 11:00 NIHSS Score: 0 iw 12:00 NIHSS Score: 0 iw MDM: 10:17 Medical Screening Exam initiated gb 13:24 Data reviewed: vital signs, nurses notes, lab test result(s), EKG, radiologic studies, gb CT scan, MRI. ED course: 69-year-old male with right-sided weakness that is since resolved prior to arrival lasting 10 to 15 minutes. He has a history of a left CVA with no residual deficits. This is likely a TIA there is no acute neurological deficit on exam and he has a nonfocal neurological exam here in the ER by me. An MRI and a CTA of the brain and neck are negative for any other acute findings. I discussed the case with Dr. Chi who does agree that the patient should be admitted and evaluated by him. The patient is otherwise vitally stable and feeling much better with an NIH stroke scale of 0. I will not recommend any TKAse at this time, as symptoms have resolved and patient is feeling back to normal. Doubt subdural hematoma or subarachnoid hemorrhage.. 10/13 10:20 Order name: Basic Metabolic Panel; Complete Time: 12:02 10/13 10:20 Order name: CBC with Diff; Complete Time: 12:57 [facility] 10/13 10:20 Order name: High Sensitivity Troponin; Complete Time: 12:02 [facility] 10/13 10:20 Order name: Protime (+inr); Complete Time: 12:02 10/13 10:20 Order name: Ptt, Activated; Complete Time: 12: [facility] 10/13 10:35 Order name: Glucose, Ancillary Testing; Complete Time: 12: [facility] 10/13 10:47 Order name: CBC Smear Scan; Complete Time: 12:57 [facility] 10/13 10:52 Order name: CREATININE WHOLE BLOOD; Complete Time: 12:02 [facility] 10/13 13:02 Order name: Urinalysis w/ reflexes [facility] 10/13 13:02 Order name: Basic Metabolic Panel [facility] 10/13 13:02 Order name: Basic Metabolic Panel [facility] 10/13 13:02 Order name: Comprehensive Metabolic Panel [facility] 10/13 13:02 Order name: Comprehensive Metabolic Panel [facility] 10/13 13:02 Order name: Magnesium [facility] 10/13 13:02 Order name: Magnesium [facility] 10/13 10:20 Order name: CT Head Angio; Complete Time: 12:02 gb10/13 10:20 Order name: CT Neck Angio; Complete Time: 12:02 gb10/13 10:20 Order name: CT Stroke Brain w/o Contrast; Complete Time: 12:02 gb10/13 10:20 Order name: Stroke CXR 1 View; Complete Time: 12:02 gb10/13 11:20 Order name: Brain Wo Cont; Complete Time: 12:02 [facility] 10/13 10:20 Order name: EKG; Complete Time: 10:21 10/13 13:00 Order name: CONS Physician Consult [facility] 10/13 10:20 Order name: Accucheck; Complete Time: :10/13 10:20 Order name: Cardiac monitoring; Complete Time: :10/13 10:20 Order name: EKG - Nurse/Tech; Complete Time: :10/13 10:20 Order name: IV Saline Lock; Complete Time: 10/13 10:20 Order name: Labs collected and sent; Complete Time: 10/13 10:20 Order name: NPO; Complete Time: :10/13 10:20 Order name: O2 Per Protocol; Complete Time: 10/13 10:20 Order name: O2 Sat Monitoring; Complete Time: 10/13 10:20 Order name: Stroke Swallow Screen; Complete Time: 11:20 gb1 Administered Medications: 10:53 Drug: Ativan IVP 0.5 mg IVP once Route: IVP; Site: right antecubital; iw Point of Care Testing: Blood Glucose: 10:30 Blood Glucose: 91 mg/dL; iw Ranges: Critical Glucose Levels:Adult <50 mg/dl or >400 mg/dl <40 mg/dl or >180 mg/dl Disposition Summary: 10/13/24 12:50 Hospitalization Ordered Notes: Hospitalization Status: Inpatient Admission gb1 Provider: Dari Acosta Condition: Stable gb1 Problem: new gb1 Symptoms: have improved gb1 Bed/Room Type: Standard [facility] Location: Telemetry/MedSurg (Inpatient)(10/13/24 16:24) [facility] Room Assignment: [facility](10/13/24 16:24) bc6 Diagnosis - Transient cerebral ischemic attack, unspecified gb1 Forms: - Medication Reconciliation Form gb1 - SBAR form gb1 - Leadership Thank You Letter gb1 Critical care time excluding procedures: 13:28 Critical care time: Bedside Care: 45 minutes, Consultation: 25 minutes, Family gb1 Intervention: 45 minutes. Total time: 115 minutes NIH Stroke Scale - NIH Stroke Score Date: 10/13/2024 Time: 10:16 Total Score = 0 10. Dysarthria (speech clarity - read or repeat words) - 0(Normal) 11. Extinction and Inattention (visual/tactile/auditory/spatial/personal) - 0(No abnormality) 1a. Level of Consciousness (LOC) - 0(Alert) 1b. Level of Consciousness (LOC) (Month \T\ Age) - 0(Both) 1c. LOC Commands (Open \T\ Closes Eyes/Veterinary X Ray Operator) - 0(Both) 2. Best Gaze (Lateral Gaze Paresis) - 0(Normal) 3. Visual Field Loss - 0(No visual loss) 4. Facial Palsy - 0(Normal) 5a. Left Arm: Motor (10-second hold) - 0(No drift) 5b. Right Arm: Motor (10-second hold) - 0(No drift) 6a. Left Leg: Motor (5-second hold - always test supine) - 0(No drift) 6b. Right Leg: Motor (5-second hold - always test supine) - 0(No drift) 7. Limb Ataxia (finger/nose \T\ heel/gilliam - test with eyes open) - 0(Absent) 8. Sensory Loss (pinprick arms/legs/face) - 0(Normal) 9. Best Language: Aphasia (description/naming/reading) - 0(No aphasia) Initials: iw NIH Stroke Scale - NIH Stroke Score Date: 10/13/2024 Time: 11:00 Total Score = 0 10. Dysarthria (speech clarity - read or repeat words) - 0(Normal) 11. Extinction and Inattention (visual/tactile/auditory/spatial/personal) - 0(No abnormality) 1a. Level of Consciousness (LOC) - 0(Alert) 1b. Level of Consciousness (LOC) (Month \T\ Age) - 0(Both) 1c. LOC Commands (Open \T\ Closes Eyes/Veterinary X Ray Operator) - 0(Both) 2. Best Gaze (Lateral Gaze Paresis) - 0(Normal) 3. Visual Field Loss - 0(No visual loss) 4. Facial Palsy - 0(Normal) 5a. Left Arm: Motor (10-second hold) - 0(No drift) 5b. Right Arm: Motor (10-second hold) - 0(No drift) 6a. Left Leg: Motor (5-second hold - always test supine) - 0(No drift) 6b. Right Leg: Motor (5-second hold - always test supine) - 0(No drift) 7. Limb Ataxia (finger/nose \T\ heel/gilliam - test with eyes open) - 0(Absent) 8. Sensory Loss (pinprick arms/legs/face) - 0(Normal) 9. Best Language: Aphasia (description/naming/reading) - 0(No aphasia) Initials: NIH Stroke Scale - NIH Stroke Score Date: 10/13/2024 Time: 12:00 Total Score = 0 10. Dysarthria (speech clarity - read or repeat words) - 0(Normal) 11. Extinction and Inattention (visual/tactile/auditory/spatial/personal) - 0(No abnormality) 1a. Level of Consciousness (LOC) - 0(Alert) 1b. Level of Consciousness (LOC) (Month \T\ Age) - 0(Both) 1c. LOC Commands (Open \T\ Closes Eyes/Veterinary X Ray Operator) - 0(Both) 2. Best Gaze (Lateral Gaze Paresis) - 0(Normal) 3. Visual Field Loss - 0(No visual loss) 4. Facial Palsy - 0(Normal) 5a. Left Arm: Motor (10-second hold) - 0(No drift) 5b. Right Arm: Motor (10-second hold) - 0(No drift) 6a. Left Leg: Motor (5-second hold - always test supine) - 0(No drift) 6b. Right Leg: Motor (5-second hold - always test supine) - 0(No drift) 7. Limb Ataxia (finger/nose \T\ heel/gilliam - test with eyes open) - 0(Absent) 8. Sensory Loss (pinprick arms/legs/face) - 0(Normal) 9. Best Language: Aphasia (description/naming/reading) - 0(No aphasia) Initials: Signatures: Dispatcher [employer] Elaine Hayden RN RN iw Alon Jimenez, RN RN bp Cait Hernandez bc6 Regla Craig MD MD gb1 Corrections: (The following items were deleted from the chart) 10:21 10:21 BASIC METABOLIC PANEL+C.LAB.BRZ ordered. EDMS EDMS 10: 10:21 CBC+H.LAB.BRZ ordered. EDMS EDMS 10: 10:21 Troponin High Sensitivity+C.LAB.BRZ ordered. EDMS EDMS 10: 10:21 PROTIME (+INR)+COAG.LAB.BRZ ordered. EDMS EDMS 10: 10:21 PTT, ACTIVATED+COAG.LAB.BRZ ordered. EDMS EDMS 10: 10:29 MR STROKE PROTOCOL+MRI.RAD.BRZ ordered. EDMS EDMS 15:16 12:50 Telemetry/MedSurg (Inpatient) gb1 bp 15:16 12:50 gb1 bp 16:24 15:16 [facility] ER HOLD bp bc6 16:24 15:16 ERHOLD- bp bc6
--- NOTE | 2024-10-13 12:51 | ER ---
Nurse's Notes [facility] Name: Derek Avery Age: 69 yrs Sex: Male : 1955 Arrival Date: 10/13/2024 Time: 10:08 Bed 4 Private MD: Diagnosis: Transient cerebral ischemic attack, unspecified Presentation: 10/13 10:16 Chief complaint: EMS states: reported pt had right sided facial droop and right iw sided weakness that lasted from [id number] , symptoms now resolved. Coronavirus screen: At this time, the client does not indicate any symptoms associated with coronavirus-19. Ebola Screen: No symptoms or risks identified at this time. Initial Sepsis Screen: Does the patient meet any 2 criteria? No. Patient's initial sepsis screen is negative. Does the patient have a suspected source of infection? No. Patient's initial sepsis screen is negative. Risk Assessment: Do you want to hurt yourself or someone else? Patient reports no desire to harm self or others. Onset of symptoms was October 13, 2024. 10:16 Method Of Arrival: EMS: [facility] iw 10:16 Acuity: AUGUST 3 iw 17:41 No acute neurological deficit is noted. Pre-hospital glucose is not applicable to this iw patient. Triage Assessment: 10:16 The onset of the patients symptoms was October 13, 2024 at 08:50. General: Appears in no iw apparent distress. Behavior is calm, cooperative. Pain: Denies pain. Neuro: Reports headache frontal area. Stroke Activation: Symptom onset < 3 hours Physician: ED Attending; Name: Dr. Craig; Notified At: 10:16; Arrived At: 10:20 Physician: Mid-Level Provider; Name: ; Notified At: 10:16; Arrived At: Physician: [not used]; Name: ; Notified At: ; Arrived At: Physician: [not used]; Name: ; Notified At: ; Arrived At: Physician: [not used]; Name: ; Notified At: ; Arrived At: Historical: - Allergies: 16:43 No Known Allergies; iw - Home Meds: 10:26 Eliquis 5 mg Oral tablet [Active]; amiodarone 200 mg Oral tablet [Active]; aspirin 81 iw mg Oral capsule 1 cap daily [Active]; atorvastatin 40 mg Oral tablet 1 tab daily [Active]; ferrous sulfate 325 mg (65 mg iron) Oral tablet [Active]; metoprolol tartrate 25 mg Oral tablet [Active]; - PMHx: 10:17 High Cholesterol; Hypertension; iw 10:26 Cerebrovascular accident; iw - PSHx: 10:17 cardiac bypass; Coronary artery bypass graft; iw - Immunization history:: Adult Immunizations not up to date. - Infectious Disease History:: Denies. - Social history:: Smoking status: Patient reports the use of cigarette tobacco products. Screenin:30 [facility] ED Fall Risk Assessment (Adult) History of falling in the last 3 months, iw including since admission No falls in past 3 months (0 pts) Confusion or Disorientation No (0 pts) Intoxicated or Sedated No (0 pts) Impaired Gait No (0 pts) Mobility Assist Device Used No (0 pt) Altered Elimination No (0 pt) Score/Fall Risk Level 0 - 2 = Low Risk Oriented to surroundings, Maintained a safe environment. 13:34 Abuse screen: Denies threats or abuse. Denies injuries from another. Nutritional iw screening: No deficits noted. Tuberculosis screening: No symptoms or risk factors identified. Assessment: 10:16 VAN Scoring: Arm Drift: Patients demonstrates NO arm weakness. Patient is VAN Negative. iw Veblen Swallow Protocol Exclusion Criteria: Brief Cognitive Screen What is your name? Normal, Where are you right now? Normal, What year is it? Normal. Oral Mechanism Examination Facial Symmetry: Normal, Motion: Normal, Lip Closure: Normal, Oral Mechanism Result: Normal. 3 oz Water Swallow Challenge: Pt able to drink all water without stopping, coughing, choking or throat clearing: Yes Result: PASS Notified: Regla Craig MD. TNKase (Tenecteplase) Screening:. 10:16 General: Appears in no apparent distress. Behavior is calm, cooperative. Pain: iw Complains of pain in forehead. Neuro: Level of Consciousness is awake, alert, obeys commands, Oriented to person, place, time, situation, Moves all extremities. Cardiovascular: Capillary refill < 3 seconds in bilateral fingers Patient's skin is warm and dry. Respiratory: Respiratory effort is even, unlabored, Respiratory pattern is regular, symmetrical. GI: Abdomen is flat, non-distended. Derm: Skin is intact, is healthy with good turgor. Musculoskeletal: Range of motion: intact in all extremities. 10:20 TNKase (Tenecteplase) Screening: Contraindications: Rapidly improving condition or iw minor deficit: Yes. 10:27 Reassessment: pt transported to CT/MRI. iw 10:53 Reassessment: pt reports feeling anxious for MRI. iw 12:00 Reassessment: Patient appears in no apparent distress at this time. Patient and/or iw family updated on plan of care and expected duration. Pain level reassessed. Patient is alert, oriented x 3, equal unlabored respirations, skin warm/dry/pink. 13:33 Reassessment: Patient appears in no apparent distress at this time. Patient and/or iw family updated on plan of care and expected duration. Pain level reassessed. Patient is alert, oriented x 3, equal unlabored respirations, skin warm/dry/pink. Vital Signs: 10:27 BP 147 / 88; Pulse 55; Resp 18; Temp 97.2; Pulse Ox 97% on R/A; iw 11:00 BP 135 / 89; Pulse 51; Resp 16; Pulse Ox 97% on R/A; Pain 0/10; iw 12:00 BP 145 / 87; Pulse 51; Resp 16; Pulse Ox 97% on R/A; Pain 0/10; iw 13:30 BP 148 / 84; Pulse 50; Resp 16; Pulse Ox 97% on R/A; Pain 0/10; iw 11:00 Pain Scale: Adult iw 12:00 Pain Scale: Adult iw 13:30 Pain Scale: Adult iw NIH Stroke Scale Scores: 10:16 NIHSS Score: 0 iw 11:00 NIHSS Score: 0 iw 12:00 NIHSS Score: 0 iw ED Course: 10:10 Patient arrived in ED. iw 10:11 Regla Craig MD is Attending Physician. gb1 10:13 Elaine Hinojosa, JOHN PAUL is Primary Nurse. iw 10:17 Triage completed. iw 10:20 Patient has correct armband on for positive identification. Provided Education on: need iw for CT. 10:20 Arm band placed on. iw 10:26 Initial lab(s) drawn, by me, sent to lab. Maintain EMS IV. Dressing intact. Good blood iw return noted. Site clean \T\ dry. Gauge \T\ site: 20 RAC. Flushed with 10 mL NS. 10:28 Basic Metabolic Panel Sent. zm 10:29 CBC with Diff Sent. zm 10:29 High Sensitivity Troponin Sent. zm 10:29 Protime (+inr) Sent. zm 10:29 Ptt, Activated Sent. zm 10:29 EKG done, by ED staff, reviewed by Regla Craig MD. zm 10:39 CT Head Angio In Process Unspecified. EDMS 10:39 CT Neck Angio In Process Unspecified. EDMS 10:39 CT Stroke Brain w/o Contrast In Process Unspecified. EDMS 11:20 Brain Wo Cont In Process Unspecified. EDMS 11:39 Stroke CXR 1 View In Process Unspecified. EDMS 12:50 Dari Acosta MD is Hospitalizing Provider. gb1 17:26 No provider procedures requiring assistance completed. Patient admitted, IV remains in iw place. Administered Medications: 10:53 Drug: Ativan IVP 0.5 mg IVP once Route: IVP; Site: right antecubital; iw Medication: 10:16 VIS not applicable for this client. iw Point of Care Testing: Blood Glucose: 10:30 Blood Glucose: 91 mg/dL; iw Ranges: Outcome: 12:50 Decision to Hospitalize by Provider. gb1 17:26 Admitted to Med/surg accompanied by tech, family with patient, via wheelchair, iw 17:26 Condition: good 17:26 Discharge instructions given to patient, family, Instructed on the need for admit, Demonstrated understanding of instructions, follow-up care, 17:27 Patient left the ED. ll1 NIH Stroke Scale - NIH Stroke Score Date: 10/13/2024 Time: 10:16 Total Score = 0 10. Dysarthria (speech clarity - read or repeat words) - 0(Normal) 11. Extinction and Inattention (visual/tactile/auditory/spatial/personal) - 0(No abnormality) 1a. Level of Consciousness (LOC) - 0(Alert) 1b. Level of Consciousness (LOC) (Month \T\ Age) - 0(Both) 1c. LOC Commands (Open \T\ Closes Eyes/Operation Shift Supervisor) - 0(Both) 2. Best Gaze (Lateral Gaze Paresis) - 0(Normal) 3. Visual Field Loss - 0(No visual loss) 4. Facial Palsy - 0(Normal) 5a. Left Arm: Motor (10-second hold) - 0(No drift) 5b. Right Arm: Motor (10-second hold) - 0(No drift) 6a. Left Leg: Motor (5-second hold - always test supine) - 0(No drift) 6b. Right Leg: Motor (5-second hold - always test supine) - 0(No drift) 7. Limb Ataxia (finger/nose \T\ heel/gilliam - test with eyes open) - 0(Absent) 8. Sensory Loss (pinprick arms/legs/face) - 0(Normal) 9. Best Language: Aphasia (description/naming/reading) - 0(No aphasia) Initials: NIH Stroke Scale - NIH Stroke Score Date: 10/13/2024 Time: 11:00 Total Score = 0 10. Dysarthria (speech clarity - read or repeat words) - 0(Normal) 11. Extinction and Inattention (visual/tactile/auditory/spatial/personal) - 0(No abnormality) 1a. Level of Consciousness (LOC) - 0(Alert) 1b. Level of Consciousness (LOC) (Month \T\ Age) - 0(Both) 1c. LOC Commands (Open \T\ Closes Eyes/Operation Shift Supervisor) - 0(Both) 2. Best Gaze (Lateral Gaze Paresis) - 0(Normal) 3. Visual Field Loss - 0(No visual loss) 4. Facial Palsy - 0(Normal) 5a. Left Arm: Motor (10-second hold) - 0(No drift) 5b. Right Arm: Motor (10-second hold) - 0(No drift) 6a. Left Leg: Motor (5-second hold - always test supine) - 0(No drift) 6b. Right Leg: Motor (5-second hold - always test supine) - 0(No drift) 7. Limb Ataxia (finger/nose \T\ heel/gilliam - test with eyes open) - 0(Absent) 8. Sensory Loss (pinprick arms/legs/face) - 0(Normal) 9. Best Language: Aphasia (description/naming/reading) - 0(No aphasia) Initials: NIH Stroke Scale - NIH Stroke Score Date: 10/13/2024 Time: 12:00 Total Score = 0 10. Dysarthria (speech clarity - read or repeat words) - 0(Normal) 11. Extinction and Inattention (visual/tactile/auditory/spatial/personal) - 0(No abnormality) 1a. Level of Consciousness (LOC) - 0(Alert) 1b. Level of Consciousness (LOC) (Month \T\ Age) - 0(Both) 1c. LOC Commands (Open \T\ Closes Eyes/Operation Shift Supervisor) - 0(Both) 2. Best Gaze (Lateral Gaze Paresis) - 0(Normal) 3. Visual Field Loss - 0(No visual loss) 4. Facial Palsy - 0(Normal) 5a. Left Arm: Motor (10-second hold) - 0(No drift) 5b. Right Arm: Motor (10-second hold) - 0(No drift) 6a. Left Leg: Motor (5-second hold - always test supine) - 0(No drift) 6b. Right Leg: Motor (5-second hold - always test supine) - 0(No drift) 7. Limb Ataxia (finger/nose \T\ heel/gilliam - test with eyes open) - 0(Absent) 8. Sensory Loss (pinprick arms/legs/face) - 0(Normal) 9. Best Language: Aphasia (description/naming/reading) - 0(No aphasia) Initials: iw Signatures: Dispatcher [employer] Elaine Hayden RN RN iw Jhoana Diamond RN RN ll1 Rose Mary Lucia Gina, MD MD gb1 Corrections: (The following items were deleted from the chart) 17:43 10:45 NIHSS Score: 0 iw iw
[2024-10-13 12:52] LABS: Blood Morphology Comment NOTED (NOT SEEN); Platelet Estimate ADEQ; White Blood Cell Scan OK (OK)
[2024-10-13 12:53] LABS: Anisocytosis 1+
--- NOTE | 2024-10-13 12:57 | P.HP ---
Certification for Inpatient Patient admitted to: Observation <Ly Anne - Last Filed: 10/13/24 15:37> Patient admitted to: Observation With expected LOS: <2 Midnights <Arcenio Acostamindi Filipe - Last Filed: 10/14/24 09:05> Patient History Date of Service: 10/13/24 Reason for admission: TIA History of Present Illness: 69-year-old male with a past medical history of CAD, CABG, hypertension, hyperlipidemia, CVA, presents to the emergency room with right-sided weakness. He reports symptoms lasted about 15 minutes and resolved. He denied slurred speech, difficulty swallowing, chest pain, shortness of breath, recent infection. ER evaluation 7 BP 147 / 88; Pulse 55; Resp 18; Temp 97.2; Pulse Ox 97% on R/A; brain MRI no acute abnormalities, MRI of the brain moderate to large abnormal signal left occipital load and appearance about old infarct, with laminar cortical necrosis. Diffusion mapping does not show evidence of acute infarction. Neck CTA Marked plaque proximal left internal carotid artery resulting in an approximately 85% stenosis, CT of the head No acute vascular abnormality displayed, High-grade stenosis proximal left posterior cerebral artery unchanged. Brain CT no acute abnormality. Plan to admit for TIA with neurology to consult . 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 -: Appendectomy Psychosocial/ Personal History: Lives at home with his - Social History Alcohol use: Yes CD- Drugs: No Caffeine use: Yes <WeslyLy milton - Last Filed: 10/13/24 15:37> Date of Service: 10/13/24 <AcostaDari - Last Filed: 10/14/24 09:05> Allergies No Known Allergies Allergy (Verified 03/02/18 16:38) Home Medications: Amiodarone HCl [Cordarone*] 200 mg PO BID 05/12/24 Apixaban [Eliquis] 5 mg PO BID 05/12/24 Aspirin 162 mg PO DAILY #60 tab.chew 10/13/24 Clopidogrel Bisulfate [Plavix] 75 mg PO DAILY #30 tab 10/13/24 Metoprolol Tartrate 25 mg PO BID #60 tab 10/13/24 Review of Systems 10-point ROS is otherwise unremarkable <Ly Anne - Last Filed: 10/13/24 15:37> Physical Examination - Physical Exam General: Alert, In no apparent distress, Oriented x3 HEENT: Atraumatic, Normocephalic, PERRLA Neck: 2+ carotid pulse no bruit, JVD not distended Respiratory: Clear to auscultation bilaterally, Normal air movement Cardiovascular: No edema, Normal pulses, Regular rate/rhythm Capillary refill: <2 Seconds Gastrointestinal: Normal bowel sounds, Soft and benign, Non-distended Musculoskeletal: No clubbing, No swelling Integumentary: No breakdown, No significant lesion Neurological: Normal speech, Normal strength at 5/5 x4 extr, Sensation intact, Cranial nerves 3-12 intact - Studies Laboratory Data (last 24 hrs) 10/13/24 10/13/24 10/13/24 10:24 10:24 10:24 WBC 13.70 H Hgb 12.9 L Hct 40.0 Plt Count 833 H PT 16.9 H INR 1.51 APTT 39.8 H Sodium 135 L Potassium 4.2 BUN 22 H Creatinine 1.26 Glucose 106 <Ly Anne - Last Filed: 10/13/24 15:37> - Studies Laboratory Data (last 24 hrs) 10/13/24 10/13/24 10/13/24 10:24 10:24 10:24 WBC 13.70 H Hgb 12.9 L Hct 40.0 Plt Count 833 H PT 16.9 H INR 1.51 APTT 39.8 H Sodium 135 L Potassium 4.2 BUN 22 H Creatinine 1.26 Glucose 106 <Dari Acosta - Last Filed: 10/14/24 09:05> Assessment and Plan - Problems (Diagnosis) (1) Carotid stenosis Current Visit: Yes Status: Acute (2) TIA (transient ischemic attack) Current Visit: Yes Status: Acute (3) Hyperlipidemia Current Visit: Yes Status: Acute (4) CAD (coronary artery disease) Current Visit: No Status: Acute (5) HTN (hypertension) Current Visit: No Status: Acute Qualifiers: Hypertension type: unspecified Qualified Code(s): I10 - Essential (primary) hypertension - Plan 69-year-old male with a past medical history of CAD, CABG, hypertension, hyperlipidemia, CVA, presents to the emergency room with right-sided weakness. He reports symptoms lasted about 15 minutes and resolved. He denied slurred speech, difficulty swallowing, chest pain, shortness of breath, recent infection. Assessment TIA CAD Hypertension History CABG History of CVA Neurology to consult, Symptoms resolved, ER evaluation BP 147 / 88; Pulse 55; Resp 18; Temp 97.2; Pulse Ox 97% on R/A; brain MRI no acute abnormalities, MRI of the brain moderate to large abnormal signal left occipital load and appearance about old infarct, with laminar cortical necrosis. Diffusion mapping does not show evidence of acute infarction. Neck CTA Marked plaque proximal left internal carotid artery resulting in an approximately 85% stenosis, CT of the head No acute vascular abnormality displayed, High-grade stenosis proximal left posterior cerebral artery unchanged. Brain CT no acute abnormality. Full code DVT Lovenox Diet cardiac Disposition Home independent Discharge Plan: Home - Advance Directives Does patient have a Living Will: No Does patient have a Durable POA for Healthcare: No - Code Status/Comfort Care Code Status: Full Code Critical Care: No Time Spent Managing Pts Care (In Minutes): 55 <Ly Anne - Last Filed: 10/13/24 15:37> Date of Service: 10/13/24 Patient is a 69-year-old gentleman came to the hospital with aphasia and with weakness. Patient had a CT scan that was unremarkable. MRI with no acute stroke. However, patient does have a left carotid artery occlusion. This needs to be evaluated. However, family does not want to be transferred at this time. Will go ahead and increase medication treatment. Is imperative the patient gets evaluated soon as possible. At this time, patient is clinically doing well and patient is stable for discharge in AM. <Dari Acosta - Last Filed: 10/14/24 09:05>
[2024-10-13] MEDS ORDERED: ONDANSETRON 4 MG/2 ML VIAL IV PRN (12:58)
[2024-10-13] MEDS ORDERED: ACETAMINOPHEN 500 MG TAB PO PRN (12:58)
[2024-10-13 17:32] VITALS: O2SAT 97
[2024-10-13 18:04] VITALS: BMI 24.3
[2024-10-13] MEDS: ASPIRIN EC 81 MG TAB PO ONE (18:16)
[2024-10-13] MEDS: CLOPIDOGREL 75 MG TABLET PO ONE (18:17)
[2024-10-13] MEDS: ATORVASTATIN 80 MG TAB PO SCH (21:10)
[2024-10-13] MEDS: AMIODARONE HCL 200 MG TAB PO SCH (21:10)
[2024-10-13] MEDS: APIXABAN 5 MG TABLET PO SCH (21:10)
[2024-10-14 05:38] LABS: Albumin 2.6 g/dL (3.4-5.0); Albumin/Globulin Ratio 0.6 (1.1-1.8); Anion Gap 11.1 mEq/L (5.0-15.0); Bilirubin Total 0.6 mg/dL (0.2-1.0); Globulin 4.5 g/dL (2.3-3.5); Magnesium 2.1 mg/dL (1.6-2.4); Potassium 4.1 mEq/L (3.5-5.1); Protein, Total 7.1 g/dL (6.4-8.2)
--- NOTE | 2024-10-14 07:35 | P.DS ---
Admission Date: 10/13/24 Discharge Date: 10/14/24 Disposition: ROUTINE DISCHARGE Discharge Condition: GOOD Reason for Admission: TIA - Problems (1) Carotid stenosis Status: Acute (2) TIA (transient ischemic attack) Status: Acute (3) Hyperlipidemia Status: Acute (4) CAD (coronary artery disease) Status: Acute (5) HTN (hypertension) Status: Acute Qualifiers: Hypertension type: unspecified Qualified Code(s): I10 - Essential (primary) hypertension Brief History of Present Illness: 69-year-old male with a past medical history of CAD, CABG, hypertension, hyperlipidemia, CVA, presents to the emergency room with right-sided weakness. He reports symptoms lasted about 15 minutes and resolved. He denied slurred speech, difficulty swallowing, chest pain, shortness of breath, recent infection. ER evaluation 7 BP 147 / 88; Pulse 55; Resp 18; Temp 97.2; Pulse Ox 97% on R/A; brain MRI no acute abnormalities, MRI of the brain moderate to large abnormal signal left occipital load and appearance about old infarct, with laminar cortical necrosis. Diffusion mapping does not show evidence of acute infarction. Neck CTA Marked plaque proximal left internal carotid artery resulting in an approximately 85% stenosis, CT of the head No acute vascular abnormality displayed, High-grade stenosis proximal left posterior cerebral artery unchanged. Brain CT no acute abnormality. Plan to admit for TIA with neurology to consult . - Physical Exam General: Alert, In no apparent distress, Oriented x3 HEENT: Atraumatic, Normocephalic, PERRLA Neck: 2+ carotid pulse no bruit, JVD not distended Respiratory: Clear to auscultation bilaterally, Normal air movement Cardiovascular: No edema, Normal pulses, Regular rate/rhythm Capillary refill: <2 Seconds Gastrointestinal: Normal bowel sounds, Soft and benign, Non-distended Musculoskeletal: No clubbing, No swelling Integumentary: No breakdown, No significant lesion Neurological: Normal speech, Normal strength at 5/5 x4 extr, Sensation intact, Cranial nerves 3-12 intact Hospital Course: 69-year-old male with a past medical history of CAD, CABG, hypertension, hyperlipidemia, CVA, presents to the emergency room with right-sided weakness. He reports symptoms lasted about 15 minutes and resolved. He denied slurred speech, difficulty swallowing, chest pain, shortness of breath, recent infection. He was admitted for for TIA with neurology to consult, tolerating diet, stable to discharge home, follow-up with neurology, follow-up with vascular surgery after discharge, educated on tobacco cessation Discharge medication Aspirin 162 daily Metoprolol 25 mg 1 p.o. twice daily Plavix 75 daily Assessment TIA, symptoms resolved High-grade carotid artery stenosis, will need to follow-up with cardio vascular surgery after discharge Tobacco use educated on tobacco cessation CABG hypertensioN hyperlipidemia HX CVA brain MRI no acute abnormalities, MRI of the brain moderate to large abnormal signal left occipital load and appearance about old infarct, with laminar cortical necrosis. Diffusion mapping does not show evidence of acute infarction. Neck CTA Marked plaque proximal left internal carotid artery resulting in an approximately 85% stenosis, CT of the head No acute vascular abnormality displayed, High-grade stenosis proximal left posterior cerebral artery unchanged. Continue home medicines as previously prescribed GOAL: Clear understanding of disease process INSTRUCTIONS: Physician Discharge Instructions: -Follow-up with PCP in 1 to 2 weeks -Follow-up with cardiology, cardiovascular surgery after -Please call Dr. Acosta at [phone] if any questions regarding hospital stay -Please call nursing station at [phone] if any nursing or medication questions -Return to the emergency room if symptoms worsen Diet: ADA, low sodium Activity: Fall precautions Vital Signs/Physical Exam: Temp Pulse Resp BP Pulse Ox 97.6 F 55 18 137/62 96 10/14/24 04:00 10/14/24 04:00 10/14/24 04:00 10/14/24 04:00 10/14/24 04:00 Laboratory Data at Discharge: WBC 13.70 thou/uL (4.3-10.9) H 10/13/24 10:24 Hgb 12.9 g/dL (13.6-17.9) L 10/13/24 10:24 Hct 40.0 % (39.6-49.0) 10/13/24 10:24 Plt Count 833 thou/uL (152-406) H 10/13/24 10:24 PT 16.9 SECONDS (10.0-13.0) H 10/13/24 10:24 INR 1.51 10/13/24 10:24 APTT 39.8 SECONDS (24.3-36.9) H 10/13/24 10:24 Sodium 136 mEq/L (136-145) 10/14/24 04:49 Potassium 4.1 mEq/L (3.5-5.1) 10/14/24 04:49 BUN 20 mg/dL (7-18) H 10/14/24 04:49 Creatinine 1.04 mg/dL (0.70-1.30) 10/14/24 04:49 Glucose 96 mg/dL (74-106) 10/14/24 04:49 Magnesium 2.1 mg/dL (1.6-2.4) 10/14/24 04:49 Total Bilirubin 0.6 mg/dL (0.2-1.0) 10/14/24 04:49 AST 21 U/L (15-37) 10/14/24 04:49 ALT 26 U/L (16-61) 10/14/24 04:49 Alkaline Phosphatase 86 U/L (45-117) 10/14/24 04:49 Home Medications: Amiodarone HCl [Cordarone*] 200 mg PO BID 05/12/24 Apixaban [Eliquis] 5 mg PO BID 05/12/24 Aspirin 162 mg PO DAILY #60 tab.chew 10/13/24 Clopidogrel Bisulfate [Plavix] 75 mg PO DAILY #30 tab 10/13/24 Metoprolol Tartrate 25 mg PO BID #60 tab 10/13/24 New Medications: Aspirin 162 mg PO DAILY #60 tab.chew Metoprolol Tartrate 25 mg PO BID #60 tab Clopidogrel Bisulfate [Plavix] 75 mg PO DAILY #30 tab Physician Discharge Instructions: -DC IV and DC back to home -Follow-up with PCP in 1 to 2 weeks -Follow-up with Neurology in 1 to 2 weeks -Follow-up with Hematology in 2-4 weeks for thrombocytosis -Follow-up with Vascular surgery for carotid artery disease -Please call Dr. Acosta at [phone] if any questions regarding hospital stay -Please call nursing station at [phone] if any nursing or medication questions -Return to the emergency room if symptoms worsen Diet: AHA Activity: Fall precautions [facility]: [facility] [Primary Care Provider] - Time spent managing pt's care (in minutes): 45
[2024-10-14 08:17] VITALS: BP 148/72; TEMP 97.8
[2024-10-14 08:22] LABS: Specific Gravity 1.026 (1.005-1.030); Urine Bilirubin NEGATIVE (Negative); Urine Blood Negative (Negative); Urine Clarity Clear (Clear); Urine Color Yellow (Yellow); Urine Glucose NEGATIVE (Negative); Urine Ketones NEGATIVE (Negative); Urine Microscopic Reflex YN NO UMIC; Urine Nitrite NEGATIVE (Negative); Urine Protein NEGATIVE (Negative); Urine Urobilinogen 1+ (Normal)
[2024-10-14] MEDS: ASPIRIN EC 81 MG TAB PO SCH (09:34)
[2024-10-14] MEDS: LOSARTAN POTASSIUM 50 MG TABLET PO SCH (09:34)
[2024-10-14] MEDS: CLOPIDOGREL 75 MG TABLET PO SCH (09:35)
== END 2024-10-14 11:45 | disposition home or self-care (01) ==
LOC: ER 10:08 → ERHOLD 12:57 → 2ND 16:54
PROVIDERS: ADMIT Hospitalist; ATTEND Hospitalist
DX: G45.9 Transient cerebral ischemic attack, unspecified (principal); E78.5 Hyperlipidemia, unspecified; I25.10 Atherosclerotic heart disease of native coronary artery without angina pectoris; I10 Essential (primary) hypertension; Z95.1 Presence of aortocoronary bypass graft
CPT/HCPCS: 36415; 70450; 70496; 70498; 70551; 71045; 80048; 80053; 80061; 81003; 82565; 82947; 83735; 84484; 85025; 85610; 85730; 93005; 96374; 99285; Q9967